=== PATIENT | female | born 1925 | race Caucasian/White ===

== ENCOUNTER 2016-10-04 11:22 | Inpatient (IN) | payer MEDICARE, BC ==
[2016-10-04] MEDS ORDERED: Sodium Chloride 0.9% 10 ML Syringe FLUSH PRN (12:04)
--- NOTE | 2016-10-04 12:59 | CT ---
Head CT Technique: Multiple axial sections through the brain were obtained. Intravenous contrast was not utilized. Comparison: No previous intracranial imaging. Findings: Ventricles along with basal cisterns and sulci over convexities are moderately prominent. Mild diminished density in noted within portions of the periventricular and subcortical white matter which is compatible with small vessel ischemic demyelination change. Several old appearing lacunar infarcts are noted within the basal ganglia. No other abnormal parenchymal densities are seen. No evidence of intracranial hemorrhage. No midline shift or mass effect is seen. Bone window settings were reviewed which shows minimal sinus disease which is felt to be chronic. No acute calvarial abnormality is seen. Atherosclerotic calcification is seen within the carotid siphon and within the vertebral vessels. Impression: 1. Senescent change as described above. No acute intracranial abnormality is identified. Diagnostic code #2
[2016-10-04] MEDS ORDERED: Sodium Chloride 0.9% 1,000 ML IV ONE (13:15)
[2016-10-04] MEDS ORDERED: Acetaminophen 325 MG Tab PO ONE (13:31)
--- NOTE | 2016-10-04 13:51 | EDM.PDOC ---
ED HPI GENERAL MEDICAL PROBLEM - General Chief Complaint: Back Pain or Injury Stated Complaint: [facility] Time Seen by Provider: 10/04/16 11:45 Source of Information: Reports: Patient, Family (daughter) History Limitations: Reports: No Limitations - History of Present Illness INITIAL COMMENTS - FREE TEXT/NARRATIVE: 89-year-old female presents via [facility] for evaluation treatment of low back pain that radiates into her buttocks, right groin and right anterior thigh. Patient reports that her pain has been going on since Sunday morning. She describes it as a spasm in her right leg. Reports the pain as a 10 out of 10. She states that she fell last night. She was on the toilet and got up when she fell backwards. She did hit her head in the occipital region when she fell. No loss of consciousness. No headaches. She is not taking anything for pain. She was instructed by her foam rubber curer not take any pain medications due to her bullous pemphigoid. She is currently complaining of pain to the right low back radiating into the buttocks, right groin and anterior right thigh. She denies any numbness or tingling. No loss of consciousness, headaches, nausea, vomiting, chest pain, abdominal pain or shortness of breath. Patient is on eloquence for A. fib. Patient is also diabetic. Right Back Pain Score (Numeric/FACES): 10 - Related Data Allergies Allergy/AdvReac Type Severity Reaction Status Date / Time allopurinol Allergy Rash Verified 10/04/16 11:35 azathioprine [From Imuran] Allergy Other Verified 10/04/16 11:35 camphor* Allergy Rash Verified 10/04/16 11:35 [From Sarna Anti-Itch] dapsone Allergy Other Verified 10/04/16 11:35 lisinopril Allergy Rash Verified 10/04/16 11:35 menthol Allergy Rash Verified 10/04/16 11:35 [From Sarna Anti-Itch] Home Meds: Home Meds Apixaban [Eliquis] 2.5 mg PO BID 10/04/16 [History] Atenolol 100 mg PO DAILY 10/04/16 [History] Atrovent 0.06% 2 spray INH BID 10/04/16 [History] Calcium Carbonate/Vitamin D3 [Caltrate 600 + D Soft Chew Tab] 1 tab PO DAILY 08/16 [History] Furosemide [Lasix] 40 mg PO DAILY 10/04/16 [History] Gabapentin [Neurontin] 100 mg PO BEDTIME 10/04/16 [History] Insulin Glarg,Human.Rec.Analog [Lantus] 15 units INJECT DAILY 10/04/16 [History] Lactobacillus Acidophilus [Acidophilus] 1 tab PO DAILY 10/04/16 [History] Latanoprost [Xalatan 0.005% Ophth Soln] 1 drop EYEBOTH BEDTIME 10/04/16 [History ] Loperamide [Imodium] 2 mg PO DAILY 10/04/16 [History] Losartan [Cozaar] 25 mg PO DAILY 10/04/16 [History] Multivitamin [Multivitamins] 1 tab PO DAILY 10/04/16 [History] Omeprazole 40 mg PO DAILY 10/04/16 [History] Prednisone [IJD: Prednisone] 15 mg PO DAILY 10/04/16 [History] Saxagliptin HCl [Onglyza] 5 mg PO DAILY 10/04/16 [History] Ubidecarenone [Co Q-10] 100 mg PO DAILY 10/04/16 [History] Past Medical History Cardiovascular History: Reports: Afib, Hypertension, Other (See Below) Other Cardiovascular History: dystolic dysfunction Endocrine/Metabolic History: Reports: Diabetes, Type II Other Endocrine/Metabolic History: insulin dependent Dermatologic History: Reports: Other (See Below) Other Dermatologic History: bullous pemphigoid Social & Family History - Tobacco Use Smoking Status *Q: Never Smoker - Caffeine Use Caffeine Use: Reports: None - Recreational Drug Use Recreational Drug Use: No ED ROS GENERAL - Review of Systems Review Of Systems: See Below Constitutional: Reports: Weakness, Decreased Appetite (has not eaten in 2 days due to the pain) Respiratory: Denies: Shortness of Breath Cardiovascular: Denies: Chest Pain GI/Abdominal: Denies: Nausea, Stool Incontinence, Vomiting : Denies: Dysuria, Incontinence Musculoskeletal: Reports: Back Pain (lower back radiating into right groin, right buttocks and right thigh) Skin: Reports: Wound (left distal forearm) Neurological: Reports: Difficulty Walking, Weakness. Denies: Headache, Syncope ED EXAM,LOWER BACK PAIN/INJURY - Physical Exam Exam: See Below Exam Limited By: No Limitations General Appearance: Alert, WD/WN, Moderate Distress Eye Exam: Bilateral Eye: PERRL Ears: Normal External Exam Nose: Normal Inspection Throat/Mouth: Normal Inspection, Normal Lips, Normal Voice, No Airway Compromise Head: Atraumatic, Normocephalic Neck: Normal Inspection, Supple, Non-Tender, Full Range of Motion Respiratory/Chest: No Respiratory Distress, Lungs Clear, Normal Breath Sounds Cardiovascular: Normal Peripheral Pulses, Irregularly Irregular GI/Abdominal: Soft, Non-Tender Back Exam: Normal Inspection, Vertebral Tenderness (t10 to the sacrum) Extremities: Normal Inspection, Limited Range of Motion (to the right hip and right knee), Other (pain with internal and external rotation of the right hip; tenderness to the right knee and right groin) Neurological: Alert, Normal Mood/Affect Psychiatric: Normal Affect, Normal Mood Skin Exam: Warm, Dry, Other (skin tear to the left distal forearm) EKG INTERPRETATION EKG Date: 10/04/16 Time: 12:40 Rhythm: A-Fib Rate (Beats/Min): 85 (75 to 120 bpm) [place]: Normal P-Wave: Present QRS: Normal ST-T: Normal QT: Normal EKG Interpretation Comments: a.fib with a rate of 75 to 120 bpm. Occasional PVC. Reviewed by myself and Dr. Crooks. Course - Vital Signs Last Recorded V/S: Last Vital Signs Temp 36.3 C 10/05/16 07:54 Pulse 84 10/05/16 08:27 Resp 12 10/05/16 07:54 BP 110/66 10/05/16 08:27 Pulse Ox 94 L 10/05/16 09:02 - Orders/Labs/Meds Orders: Active Orders 24 hr Category Date Time Status Blood Glucose Check, Bedside [] QIDACANDBED Care 10/04/16 16:31 Active Height and Weight [] 04 Care 10/04/16 16:24 Active Insert Quinones Catheter [Insert Urinary Catheter] [OM.PC] Care 10/04/16 12:50 Ordered Stat Oxygen Therapy [] PRN Care 10/04/16 16:24 Active Peripheral IV Care [] Q2HR Care 10/04/16 12:04 Active RT Aerosol Therapy [] ASDIRECTED Care 10/04/16 16:28 Active Up With Assistance [] ASDIRECTED Care 10/04/16 16:24 Active Up ad Ria [RC] ASDIRECTED Care 10/04/16 16:24 Active VTE/DVT Education [RC] DAILY Care 10/04/16 16:24 Active Vital Signs [RC] Q4H Care 10/04/16 16:24 Active Consult to Case Management [CONS] Routine Cons 10/04/16 16:28 Active Consult to Dining Car Conductor [CONS] Routine Cons 10/04/16 16:28 Active Consult to Spiritual Care [CONS] Routine Cons 10/04/16 16:28 Active OT Evaluation and Treatment [CONS] Routine Cons 10/04/16 16:28 Active PT Evaluation and Treatment [CONS] Routine Cons 10/04/16 16:28 Active Consistent Carbohydrate Diet [DIET] Diet 10/04/16 Dinner Active BASIC METABOLIC PANEL,BMP [CHEM] AM Lab 10/06/16 05:11 Ordered CBC WITH AUTO DIFF [HEME] AM Lab 10/06/16 05:11 Ordered CULTURE URINE [RM] Stat Lab 10/04/16 12:53 Results MAGNESIUM [CHEM] AM Lab 10/06/16 05:11 Ordered VITAMIN D 25-HYROXY (D2, D3) [REF] Stat Lab 10/04/16 12:35 Received Acetaminophen/HYDROcodone [[place] 325-5 MG] Med 10/04/16 16:24 Active 1 tab PO Q4H PRN Albuterol/Ipratropium [DuoNeb 3.0-0.5 MG/3 ML] Med 10/04/16 16:24 Active 3 ml NEB Q4H PRN Apixaban [Eliquis] Med 10/04/16 21:00 Active 2.5 mg PO BID Atenolol [Tenormin] Med 10/05/16 09:00 Active 100 mg PO DAILY Bisacodyl [Dulcolax] Med 10/04/16 16:24 Active 5 mg PO DAILY PRN Calcium Carbonate/Vitamin D3 [Calcium Carbonate/Vitamin Med 10/05/16 09:00 Active D 1500 MG-200 Unit] 1 tab PO DAILY Dextrose 50% in Water Med 10/04/16 16:31 Active 50 ml IVPUSH ASDIRECTED PRN Docusate Sodium [Colace] Med 10/04/16 16:24 Active 100 mg PO BID PRN Docusate Sodium/Sennosides [Senna Plus] Med 10/04/16 16:24 Active 1 tab PO BID PRN Furosemide [Lasix] Med 10/05/16 09:00 Active 40 mg PO DAILY Gabapentin [Neurontin] Med 10/04/16 21:00 Active 100 mg PO BEDTIME HYDROmorphone [Dilaudid] Med 10/04/16 16:24 Active 0.25 mg IVPUSH Q4H PRN Insulin Aspart [NovoLOG] Med 10/04/16 17:00 Active See Protocol SUBCUT QIDACANDBED Insulin Detemir [Levemir] Med 10/05/16 21:00 Active 7 unit SUBCUT BEDTIME LORazepam [Ativan] Med 10/04/16 16:24 Active 0.25 mg IV Q6H PRN Latanoprost [Xalatan 0.005% Ophth Soln] Med 10/04/16 21:00 Active 0 ml EYEBOTH BEDTIME Loperamide [Imodium] Med 10/05/16 09:00 Active 2 mg PO DAILY Losartan [Cozaar] Med 10/05/16 09:00 Active 25 mg PO DAILY Metoprolol Tartrate [Lopressor] Med 10/04/16 16:30 Active 5 mg IVPUSH Q4H PRN Multivitamins,Therapeutic [Thera] Med 10/05/16 09:00 Active 1 each PO DAILY Ondansetron [Zofran] Med 10/04/16 16:24 Active 4 mg IV Q6H PRN Pantoprazole [ProTONIX] Med 10/05/16 07:00 Active 40 mg PO DAILY@0700 Patient's Own Medication [Ptom] Med 10/05/16 09:00 Active 0 each PO DAILY Polyethylene Glycol 3350 [MiraLAX] Med 10/04/16 16:24 Active 17 gm PO DAILY PRN Promethazine [Phenergan] 12.5 mg Med 10/04/16 16:24 Active Sodium Chloride 0.9% [Normal Saline] 50 ml IV Q6H Saxagliptin [Onglyza] Med 10/05/16 09:00 Active 5 mg PO DAILY Sodium Chloride 0.9% [Saline Flush] Med 10/04/16 12:04 Active 10 ml FLUSH ASDIRECTED PRN Temazepam [Restoril] Med 10/04/16 16:24 Active 7.5 mg PO BEDTIME PRN hydrALAZINE [Apresoline] Med 10/04/16 16:30 Active 10 mg IVPUSH Q4H PRN predniSONE Med 10/05/16 09:00 Active 15 mg PO DAILY tiZANidine [Zanaflex] Med 10/04/16 16:34 Active 2 mg PO Q6H PRN Peripheral IV Insertion Adult [OM.PC] Routine Oth 10/04/16 12:04 Ordered Resuscitation Status Routine Resus Stat 10/04/16 16:24 Ordered Medication Orders Hydrocodone Bitart/Acetaminophen ([place] 325-5 Mg) 1 tab PO Q4H PRN PRN Reason: Pain (moderate 4-6) Albuterol/Ipratropium (Duoneb 3.0-0.5 Mg/3 Ml) 3 ml NEB Q4H PRN PRN Reason: Shortness Of Breath/wheezing Apixaban (Eliquis) 2.5 mg PO BID [facility] Last Admin: 10/05/16 08:27 Dose: 2.5 mg Admin: 10/04/16 20:45 Dose: 2.5 mg Atenolol (Tenormin) 100 mg PO DAILY [facility] Last Admin: 10/05/16 08:27 Dose: 100 mg Bisacodyl (Dulcolax) 5 mg PO DAILY PRN PRN Reason: Constipation Calcium Carbonate (Calcium Carbonate/Vitamin D 1500 Mg-200 Unit) 1 tab PO DAILY [facility] Last Admin: 10/05/16 08:22 Dose: 1 tab Dextrose/Water (Dextrose 50% In Water) 50 ml IVPUSH ASDIRECTED PRN PRN Reason: Hypoglycemia Diphtheria/Tetanus/Acell Pertussis (Adacel) 0.5 ml IM .ONCE ONE Stop: 10/06/16 18:26 Docusate Sodium (Colace) 100 mg PO BID PRN PRN Reason: Constipation Furosemide (Lasix) 40 mg PO DAILY [facility] Last Admin: 10/05/16 08:22 Dose: 40 mg Gabapentin (Neurontin) 100 mg PO BEDTIME [facility] Last Admin: 10/04/16 20:45 Dose: 100 mg Hydralazine HCl (Apresoline) 10 mg IVPUSH Q4H PRN PRN Reason: Hypertension Hydromorphone HCl (Dilaudid) 0.25 mg IVPUSH Q4H PRN PRN Reason: Pain (severe 7-10) Promethazine HCl 12.5 mg/ (Sodium Chloride) 50.5 mls @ 100 mls/hr IV Q6H PRN PRN Reason: Nausea/Vomiting Ceftriaxone Sodium 1 gm/ (Sodium Chloride) 100 mls @ 200 mls/hr IV Q24H [facility] Last Admin: 10/05/16 08:21 Dose: 200 mls/hr Insulin Aspart (Novolog) 0 unit SUBCUT QIDACANDBED [facility] PRN Reason: Protocol Last Admin: 10/05/16 07:00 Dose: Admin: 10/04/16 21:17 Dose: 2 units Admin: 10/04/16 18:48 Dose: Insulin Detemir (Levemir) 7 unit SUBCUT BEDTIME [facility] Insulin Detemir (Levemir) 8 unit SUBCUT DAILY [facility] Last Admin: 10/05/16 08:22 Dose: 8 units Latanoprost (Xalatan 0.005% Ophth Soln) 0 ml EYEBOTH BEDTIME [facility] Last Admin: 10/04/16 20:53 Dose: 1 drop Loperamide HCl (Imodium) 2 mg PO DAILY [facility] Last Admin: 10/05/16 08:22 Dose: 2 mg Lorazepam (Ativan) 0.25 mg IV Q6H PRN PRN Reason: Anxiety Losartan Potassium (Cozaar) 25 mg PO DAILY [facility] Last Admin: 10/05/16 08:26 Dose: 25 mg Magnesium Sulfate (Pharmacy To Dose - Magnesium Replacement) 1 dose .XX ASDIRECTED [facility] Metoprolol Tartrate (Lopressor) 5 mg IVPUSH Q4H PRN PRN Reason: Tachycardia Multivitamins (Thera) 1 each PO DAILY [facility] Last Admin: 10/05/16 08:22 Dose: 1 each Ondansetron HCl (Zofran) 4 mg IV Q6H PRN PRN Reason: Nausea/Vomiting Oxycodone HCl (Oxycodone) 5 mg PO Q12HR [facility] Last Admin: 10/05/16 08:27 Dose: 5 mg Admin: 10/04/16 20:45 Dose: 5 mg Pantoprazole Sodium (Protonix) 40 mg PO DAILY@0700 [facility] Last Admin: 10/05/16 06:04 Dose: 40 mg Ubidecarenone 100 Mg 0 each PO DAILY [facility] Last Admin: 10/05/16 08:27 Dose: Polyethylene Glycol (Miralax) 17 gm PO DAILY PRN PRN Reason: Constipation Potassium Chloride (Pharmacy To Dose - Potassium Replacement) 1 dose .XX ASDIRECTED [facility] Potassium Chloride (Klor-Con M20) 40 meq PO Q4H [facility] Stop: 10/05/16 16:16 Last Admin: 10/05/16 08:21 Dose: 40 meq Prednisone (Prednisone) 15 mg PO DAILY [facility] Last Admin: 10/05/16 08:22 Dose: 15 mg Saccharomyces Boulardii (Florastor) 250 mg PO DAILY [facility] Last Admin: 10/05/16 08:21 Dose: 250 mg Saxagliptin Hydrochloride (Onglyza) 5 mg PO DAILY [facility] Senna/Docusate Sodium (Senna Plus) 1 tab PO BID PRN PRN Reason: Constipation Sodium Chloride (Saline Flush) 10 ml FLUSH ASDIRECTED PRN PRN Reason: Keep Vein Open Last Admin: 10/04/16 12:41 Dose: 10 ml Temazepam (Restoril) 7.5 mg PO BEDTIME PRN PRN Reason: Sleep Tiotropium [place] (Spiriva Handihaler) 18 mcg INH DAILY [facility] Last Admin: 10/05/16 08:58 Dose: 1 puff Admin: 10/04/16 20:59 Dose: 1 puff Tizanidine HCl (Zanaflex) 2 mg PO Q6H PRN PRN Reason: Muscle Spasm Labs: Laboratory Tests 10/04/16 10/04/16 10/04/16 Range/Units 12:32 12:35 12:35 WBC 13.92 H (3.98-10.04) K/mm3 RBC 5.11 (3.98-5.22) M/mm3 Hgb 15.4 (11.2-15.7) gm/L Hct 47.4 H (34.1-44.9) % MCV 92.8 (79.4-94.8) fl MCH 30.1 (25.6-32.2) pg MCHC 32.5 (32.2-35.5) g/dl RDW Std Deviation 50.0 H (36.4-46.3) fL Plt Count 265 (182-369) K/mm3 MPV 10.3 (9.4-12.3) fl Neut % (Auto) 85.3 H (34.0-71.1) % Lymph % (Auto) 5.1 L (19.3-51.7) % [place] % (Auto) 6.9 (4.7-12.5) % Eos % (Auto) 0.1 L (0.7-5.8) Baso % (Auto) 0.3 (0.1-1.2) % Neut # (Auto) 11.88 H (1.56-6.13) K/mm3 Lymph # (Auto) 0.71 L (1.18-3.74) K/mm3 [place] # (Auto) 0.96 H (0.24-0.36) K/mm3 Eos # (Auto) 0.01 L (0.04-0.36) K/mm3 Baso # (Auto) 0.04 (0.01-0.08) K/mm3 Manual Slide Review Abnormal smear PT 10.8 (8.0-13.0) SECONDS INR 0.99 Sodium (136-145) mEq/L Potassium (3.5-5.1) mEq/L Chloride (98-107) mEq/L Carbon Dioxide (21-32) mEq/L Anion Gap (5-15) BUN (7-18) mg/dL Creatinine (0.55-1.02) mg/dL Est Cr Clr Drug Dosing mL/min Estimated GFR (MDRD) (>60) mL/min BUN/Creatinine Ratio (14-18) Glucose (83-115) mg/dL POC Glucose 230 H (83-110) mg/dL Hemoglobin A1c (4.50-6.20) % Calcium (8.5-10.1) mg/dL Magnesium (1.8-2.4) mg/dl Total Bilirubin (0.2-1.0) mg/dL AST (15-37) U/L ALT (14-59) U/L Alkaline Phosphatase (46-116) U/L Troponin I (0.00-0.056) ng/mL C-Reactive Protein (<1.0) mg/dL B-Natriuretic Peptide (0-100) pg/mL Total Protein (6.4-8.2) g/dl Albumin (3.4-5.0) g/dl Globulin gm/dL Albumin/Globulin Ratio (1-2) Free T4 (0.76-1.46) ng/dL TSH 3rd Generation (0.358-3.74) uIU/mL Urine Color (Yellow) Urine Appearance (Clear) Urine pH (5.0-8.0) Ur Specific [place] (1.005-1.030) Urine Protein (Negative) Urine Glucose (UA) (Negative) Urine Ketones (Negative) Urine Occult Blood (Negative) Urine Nitrite (Negative) Urine Bilirubin (Negative) Urine Urobilinogen (0.2-1.0) Ur Leukocyte Esterase (Negative) Urine RBC (0-5) /hpf Urine WBC (0-5) /hpf Urine WBC Clumps (NOT SEEN) /hpf Ur Epithelial Cells (0-5) /hpf Urine Bacteria (FEW) /hpf Urine Mucus (FEW) /hpf 10/04/16 10/04/16 10/04/16 Range/Units 12:35 12:35 12:35 WBC (3.98-10.04) K/mm3 RBC (3.98-5.22) M/mm3 Hgb (11.2-15.7) gm/L Hct (34.1-44.9) % MCV (79.4-94.8) fl MCH (25.6-32.2) pg MCHC (32.2-35.5) g/dl RDW Std Deviation (36.4-46.3) fL Plt Count (182-369) K/mm3 MPV (9.4-12.3) fl Neut % (Auto) (34.0-71.1) % Lymph % (Auto) (19.3-51.7) % [place] % (Auto) (4.7-12.5) % Eos % (Auto) (0.7-5.8) Baso % (Auto) (0.1-1.2) % Neut # (Auto) (1.56-6.13) K/mm3 Lymph # (Auto) (1.18-3.74) K/mm3 [place] # (Auto) (0.24-0.36) K/mm3 Eos # (Auto) (0.04-0.36) K/mm3 Baso # (Auto) (0.01-0.08) K/mm3 Manual Slide Review PT (8.0-13.0) SECONDS INR Sodium 137 (136-145) mEq/L Potassium 3.2 L (3.5-5.1) mEq/L Chloride 95 L (98-107) mEq/L Carbon Dioxide 33 H (21-32) mEq/L Anion Gap 12.2 (5-15) BUN 19 H (7-18) mg/dL Creatinine 1.4 H (0.55-1.02) mg/dL Est Cr Clr Drug Dosing 22.53 mL/min Estimated GFR (MDRD) 35 (>60) mL/min BUN/Creatinine Ratio 13.6 L (14-18) Glucose 238 H (83-115) mg/dL POC Glucose (83-110) mg/dL Hemoglobin A1c (4.50-6.20) % Calcium 9.1 (8.5-10.1) mg/dL Magnesium 2.0 (1.8-2.4) mg/dl Total Bilirubin 0.9 (0.2-1.0) mg/dL AST 19 (15-37) U/L ALT 34 (14-59) U/L Alkaline Phosphatase 32 L (46-116) U/L Troponin I (0.00-0.056) ng/mL C-Reactive Protein (<1.0) mg/dL B-Natriuretic Peptide 781 H (0-100) pg/mL Total Protein 6.8 (6.4-8.2) g/dl Albumin 3.5 (3.4-5.0) g/dl Globulin 3.3 gm/dL Albumin/Globulin Ratio 1.1 (1-2) Free T4 (0.76-1.46) ng/dL TSH 3rd Generation (0.358-3.74) uIU/mL Urine Color (Yellow) Urine Appearance (Clear) Urine pH (5.0-8.0) Ur Specific [place] (1.005-1.030) Urine Protein (Negative) Urine Glucose (UA) (Negative) Urine Ketones (Negative) Urine Occult Blood (Negative) Urine Nitrite (Negative) Urine Bilirubin (Negative) Urine Urobilinogen (0.2-1.0) Ur Leukocyte Esterase (Negative) Urine RBC (0-5) /hpf Urine WBC (0-5) /hpf Urine WBC Clumps (NOT SEEN) /hpf Ur Epithelial Cells (0-5) /hpf Urine Bacteria (FEW) /hpf Urine Mucus (FEW) /hpf 07/05/17 07/05/17 07/05/17 Range/Units 12:35 12:35 12:35 WBC (3.98-10.04) K/mm3 RBC (3.98-5.22) M/mm3 Hgb (11.2-15.7) gm/L Hct (34.1-44.9) % MCV (79.4-94.8) fl MCH (25.6-32.2) pg MCHC (32.2-35.5) g/dl RDW Std Deviation (36.4-46.3) fL Plt Count (182-369) K/mm3 MPV (9.4-12.3) fl Neut % (Auto) (34.0-71.1) % Lymph % (Auto) (19.3-51.7) % [place] % (Auto) (4.7-12.5) % Eos % (Auto) (0.7-5.8) Baso % (Auto) (0.1-1.2) % Neut # (Auto) (1.56-6.13) K/mm3 Lymph # (Auto) (1.18-3.74) K/mm3 [place] # (Auto) (0.24-0.36) K/mm3 Eos # (Auto) (0.04-0.36) K/mm3 Baso # (Auto) (0.01-0.08) K/mm3 Manual Slide Review PT (8.0-13.0) SECONDS INR Sodium (136-145) mEq/L Potassium (3.5-5.1) mEq/L Chloride (98-107) mEq/L Carbon Dioxide (21-32) mEq/L Anion Gap (5-15) BUN (7-18) mg/dL Creatinine (0.55-1.02) mg/dL Est Cr Clr Drug Dosing mL/min Estimated GFR (MDRD) (>60) mL/min BUN/Creatinine Ratio (14-18) Glucose (83-115) mg/dL POC Glucose (83-110) mg/dL Hemoglobin A1c 8.90 H (4.50-6.20) % Calcium (8.5-10.1) mg/dL Magnesium (1.8-2.4) mg/dl Total Bilirubin (0.2-1.0) mg/dL AST (15-37) U/L ALT (14-59) U/L Alkaline Phosphatase (46-116) U/L Troponin I < 0.017 (0.00-0.056) ng/mL C-Reactive Protein < 0.2 (<1.0) mg/dL B-Natriuretic Peptide (0-100) pg/mL Total Protein (6.4-8.2) g/dl Albumin (3.4-5.0) g/dl Globulin gm/dL Albumin/Globulin Ratio (1-2) Free T4 1.39 (0.76-1.46) ng/dL TSH 3rd Generation 2.412 (0.358-3.74) uIU/mL Urine Color (Yellow) Urine Appearance (Clear) Urine pH (5.0-8.0) Ur Specific [place] (1.005-1.030) Urine Protein (Negative) Urine Glucose (UA) (Negative) Urine Ketones (Negative) Urine Occult Blood (Negative) Urine Nitrite (Negative) Urine Bilirubin (Negative) Urine Urobilinogen (0.2-1.0) Ur Leukocyte Esterase (Negative) Urine RBC (0-5) /hpf Urine WBC (0-5) /hpf Urine WBC Clumps (NOT SEEN) /hpf Ur Epithelial Cells (0-5) /hpf Urine Bacteria (FEW) /hpf Urine Mucus (FEW) /hpf 10/04/16 Range/Units 12:53 WBC (3.98-10.04) K/mm3 RBC (3.98-5.22) M/mm3 Hgb (11.2-15.7) gm/L Hct (34.1-44.9) % MCV (79.4-94.8) fl MCH (25.6-32.2) pg MCHC (32.2-35.5) g/dl RDW Std Deviation (36.4-46.3) fL Plt Count (182-369) K/mm3 MPV (9.4-12.3) fl Neut % (Auto) (34.0-71.1) % Lymph % (Auto) (19.3-51.7) % [place] % (Auto) (4.7-12.5) % Eos % (Auto) (0.7-5.8) Baso % (Auto) (0.1-1.2) % Neut # (Auto) (1.56-6.13) K/mm3 Lymph # (Auto) (1.18-3.74) K/mm3 [place] # (Auto) (0.24-0.36) K/mm3 Eos # (Auto) (0.04-0.36) K/mm3 Baso # (Auto) (0.01-0.08) K/mm3 Manual Slide Review PT (8.0-13.0) SECONDS INR Sodium (136-145) mEq/L Potassium (3.5-5.1) mEq/L Chloride (98-107) mEq/L Carbon Dioxide (21-32) mEq/L Anion Gap (5-15) BUN (7-18) mg/dL Creatinine (0.55-1.02) mg/dL Est Cr Clr Drug Dosing mL/min Estimated GFR (MDRD) (>60) mL/min BUN/Creatinine Ratio (14-18) Glucose (83-115) mg/dL POC Glucose (83-110) mg/dL Hemoglobin A1c (4.50-6.20) % Calcium (8.5-10.1) mg/dL Magnesium (1.8-2.4) mg/dl Total Bilirubin (0.2-1.0) mg/dL AST (15-37) U/L ALT (14-59) U/L Alkaline Phosphatase (46-116) U/L Troponin I (0.00-0.056) ng/mL C-Reactive Protein (<1.0) mg/dL B-Natriuretic Peptide (0-100) pg/mL Total Protein (6.4-8.2) g/dl Albumin (3.4-5.0) g/dl Globulin gm/dL Albumin/Globulin Ratio (1-2) Free T4 (0.76-1.46) ng/dL TSH 3rd Generation (0.358-3.74) uIU/mL Urine Color Dark yellow (Yellow) Urine Appearance Slt cloudy H (Clear) Urine pH 6.5 (5.0-8.0) Ur Specific [place] 1.020 (1.005-1.030) Urine Protein 1+ H (Negative) Urine Glucose (UA) Negative (Negative) Urine Ketones Negative (Negative) Urine Occult Blood 2+ H (Negative) Urine Nitrite Positive H (Negative) Urine Bilirubin Negative (Negative) Urine Urobilinogen 0.2 (0.2-1.0) Ur Leukocyte Esterase Trace H (Negative) Urine RBC 0-5 (0-5) /hpf Urine WBC 40-50 H (0-5) /hpf Urine WBC Clumps Few (NOT SEEN) /hpf Ur Epithelial Cells 5-10 H (0-5) /hpf Urine Bacteria Many H (FEW) /hpf Urine Mucus Not seen (FEW) /hpf Meds: Medications Generic Name Dose Route Start Last Admin Trade Name Freq PRN Reason Stop Dose Admin Hydrocodone Bitart/Acetaminophen 1 tab 10/04/16 16:24 [place] 325-5 Mg PO Q4H PRN Pain (moderate 4-6) Albuterol/Ipratropium 3 ml 10/04/16 16:24 Duoneb 3.0-0.5 Mg/3 Ml NEB Q4H PRN Shortness Of Breath/wheezing Apixaban 2.5 mg 10/04/16 21:00 10/05/16 08:27 Eliquis PO 2.5 mg BID GURVINDER Administration Atenolol 100 mg 10/05/16 09:00 10/05/16 08:27 Tenormin PO 100 mg DAILY GURVINDER Administration Bisacodyl 5 mg 10/04/16 16:24 Dulcolax PO DAILY PRN Constipation Calcium Carbonate 1 tab 10/05/16 09:00 10/05/16 08:22 Calcium Carbonate/Vitamin D 1500 Mg-200 Unit PO 1 tab DAILY GURVINDER Administration Dextrose/Water 50 ml 10/04/16 16:31 Dextrose 50% In Water IVPUSH ASDIRECTED PRN Hypoglycemia Diphtheria/Tetanus/Acell Pertussis 0.5 ml 10/06/16 18:25 Adacel IM 10/06/16 18:26 .ONCE ONE Docusate Sodium 100 mg 10/04/16 16:24 Colace PO BID PRN Constipation Furosemide 40 mg 10/05/16 09:00 10/05/16 08:22 Lasix PO 40 mg DAILY GURVINDER Administration Gabapentin 100 mg 10/04/16 21:00 10/04/16 20:45 Neurontin PO 100 mg BEDTIME GURVINDER Administration Hydralazine HCl 10 mg 10/04/16 16:30 Apresoline IVPUSH Q4H PRN Hypertension Hydromorphone HCl 0.25 mg 10/04/16 16:24 Dilaudid IVPUSH Q4H PRN Pain (severe 7-10) Promethazine HCl 12.5 mg/ 50.5 mls @ 100 mls/hr 10/04/16 16:24 Sodium Chloride IV Q6H PRN Nausea/Vomiting Ceftriaxone Sodium 1 gm/ 100 mls @ 200 mls/hr 10/05/16 09:00 10/05/16 08:21 Sodium Chloride IV 200 mls/hr Q24H GURVINDER Administration Insulin Aspart 0 unit 10/04/16 17:00 10/05/16 07:00 Novolog SUBCUT Not Given QIDACANDBED [facility] Protocol Insulin Detemir 7 unit 10/05/16 21:00 Levemir SUBCUT BEDTIME GURVINDER Insulin Detemir 8 unit 10/05/16 09:00 10/05/16 08:22 Levemir SUBCUT 8 units DAILY GURVINDER Administration Latanoprost 0 ml 10/04/16 21:00 10/04/16 20:53 Xalatan 0.005% Ophth Soln EYEBOTH 1 drop BEDTIME GURVINDER Administration Loperamide HCl 2 mg 10/05/16 09:00 10/05/16 08:22 Imodium PO 2 mg DAILY GURVINDER Administration Lorazepam 0.25 mg 10/04/16 16:24 Ativan IV Q6H PRN Anxiety Losartan Potassium 25 mg 10/05/16 09:00 10/05/16 08:26 Cozaar PO 25 mg DAILY GURVINDER Administration Magnesium Sulfate 1 dose 10/04/16 20:00 Pharmacy To Dose - Magnesium Replacement .XX ASDIRECTED [facility] Metoprolol Tartrate 5 mg 10/04/16 16:30 Lopressor IVPUSH Q4H PRN Tachycardia Multivitamins 1 each 10/05/16 09:00 10/05/16 08:22 Thera PO 1 each DAILY GURVINDER Administration Ondansetron HCl 4 mg 10/04/16 16:24 Zofran IV Q6H PRN Nausea/Vomiting Oxycodone HCl 5 mg 10/04/16 21:00 10/05/16 08:27 Oxycodone PO 5 mg Q12HR GURVINDER Administration Pantoprazole Sodium 40 mg 10/05/16 07:00 10/05/16 06:04 Protonix PO 40 mg DAILY@0700 GURVINDER Administration Ubidecarenone 100 Mg 0 each 10/05/16 09:00 10/05/16 08:27 PO Not Given DAILY GURVINDER Polyethylene Glycol 17 gm 10/04/16 16:24 Miralax PO DAILY PRN Constipation Potassium Chloride 1 dose 10/04/16 20:00 Pharmacy To Dose - Potassium Replacement .XX ASDIRECTED GURVINDER Potassium Chloride 40 meq 10/05/16 08:15 10/05/16 08:21 Klor-Con M20 PO 10/05/16 16:16 40 meq Q4H G[facility]VINDER Administration Prednisone 15 mg 10/05/16 09:00 10/05/16 08:22 Prednisone PO 15 mg DAILY [facility] Administration Saccharomyces Boulardii 250 mg 10/05/16 09:00 10/05/16 08:21 Florastor PO 250 mg DAILY G[facility]ER Administration Saxagliptin Hydrochloride 5 mg 10/05/16 09:00 Onglyza PO DAILY G[facility]VINDER Senna/Docusate Sodium 1 tab 10/04/16 16:24 Senna Plus PO BID PRN Constipation Sodium Chloride 10 ml 10/04/16 12:04 10/04/16 12:41 Saline Flush FLUSH 10 ml ASDIRECTED PRN Administration Keep Vein Open Temazepam 7.5 mg 10/04/16 16:24 Restoril PO BEDTIME PRN Sleep Tiotropium [place] 18 mcg 10/04/16 19:45 10/05/16 08:58 Spiriva Handihaler INH 1 puff DAILY [facility] Administration Tizanidine HCl 2 mg 10/04/16 16:34 Zanaflex PO Q6H PRN Muscle Spasm Discontinued Medications Generic Name Dose Route Start Last Admin Trade Name Freq PRN Reason Stop Dose Admin Acetaminophen 650 mg 10/04/16 13:31 10/04/16 14:32 Tylenol PO 10/04/16 13:32 650 mg NOW ONE Administration Diazepam 2 mg 10/04/16 12:15 10/04/16 12:41 Valium IVPUSH 10/04/16 12:16 2 mg ONETIME ONE Administration Diazepam 2 mg 10/04/16 13:31 10/04/16 14:28 Valium IVPUSH 10/04/16 13:32 2 mg ONETIME ONE Administration Hydromorphone HCl 0.25 mg 10/04/16 15:18 10/04/16 15:39 Dilaudid IVPUSH 10/04/16 15:19 0.25 mg ONETIME ONE Administration Sodium Chloride 1,000 mls @ 100 mls/hr 10/04/16 13:15 10/04/16 14:25 Normal Saline IV 10/04/16 23:14 100 mls/hr ONETIME ONE Administration Ceftriaxone Sodium 1 gm/ 100 mls @ 200 mls/hr 10/04/16 15:34 10/04/16 15:59 Sodium Chloride IV 10/04/16 16:03 200 mls/hr ONETIME ONE Administration Magnesium Oxide 400 mg 10/05/16 08:30 10/05/16 08:22 Magnesium Oxide PO 10/05/16 08:31 400 mg ONETIME ONE Administration Non-Formulary Medication 1 tab 10/05/16 09:00 Lactobacillus Acidophilus [Acidophilus] PO DAILY GURVINDER Oxycodone HCl 10 mg 10/04/16 21:00 Oxycontin PO Q12HR G[facility]INDER Oxycodone HCl 5 mg 10/04/16 21:00 Oxycontin PO Q12HR [facility]UR[facility]INDER Potassium Chloride 20 meq 10/04/16 15:31 10/04/16 15:41 Klor-Con M20 PO 10/04/16 15:32 20 meq ONETIME ONE Administration - Radiology Interpretation Free Text/Narrative:: CT of the head without contrast impression per Dr. Ryan: 1. Senescent change. No acute intracranial abnormality is identified. chest [address] Ryan: Impression: 1. Multiple findings which are stable. Nothing acute is appreciated on frontal chest x-ray. right knee [address] Ryan: Impression: 1. Degenerative change as described above. Nothing acute is identified on right knee exam. right hip and pelvis impression per Dr. Ryan: Impression: 1. Degenerative change. 2. Nothing acute is identified on AP pelvis or on 2 view right hip study. lumbar spine impression per Dr. Ryan: Impression: 1. Diffuse degenerative change as well as scoliosis and vascular calcification. 2. Spondylolisthesis at L4-L5 believed to be due to degenerative apophyseal change, but please correlate with the patient's symptoms and if patient has had sufficient trauma, CT could be considered to confirm this impression of degenerative change. thoracic spine impression per Dr. Ryan: Impression: 1. Mild anterior wedging within the mid thoracic spine most likely old. 2. Degenerative change and mild scoliosis. Ct of the lumbar spine impression per Dr. Ryan: Impression: 1. Degenerative change as described above. No acute fracture or acute subluxation is seen. CT of the right hip impression per Dr. Ryan: N actute fracture is appreciated on CT study ofthe right hip. Degenerative chanes. - Re-Assessments/Exams Free Text/Narrative Re-Assessment/Exam: 10/04/16 12:30 Patient and family are very concerned about the pemphigoid. They do not want pain medication and would like to try something for muscle relaxation instead. 10/04/16 13:30 Labs returned wbc is 13.92 9she is on prednison 15mg PO daily), hgb is 15.4, plts are 265 sodium is 137, potassium is 3.2 and chloride is 95. anion gap is 12.2 creatinine is 1.4 glucose is 238 trop is <0.017 BNP is 781 mag is 2.0 Discussed ekg, labs and imagining with the patient. Will obtain CT of the right hip and lumbar spine to further evaluate pain. Patent had good relief with the 2mg IV valvium but only lasted about 45 minutes. Will give tylenol PO and an additional 2mg IV valvium for relief. 10/04/16 15:[address] results with the patient and her family. Continues to have severe pain. I would like to give Dilaudid for pain. This medication is not listed as one that may worsen pemphigoid. They agree. Will give 0.25mg IV dilaudid. 10/04/16 16:[address] Ramirez, hospitalist, agrees to admission. Will admit for pain control, UTI treatment, hypokalemia and back pain. Patient reports pain has improved with the IV dilaudid. Patient given IV rocephin for the UTI. Rocephin was not listed as a medication that may exacerbate pemphigoid. Departure - Departure Time of Disposition: 16:30 Disposition: Admitted As Inpatient 67 Condition: Poor Clinical Impression: Acute exacerbation of chronic low back pain, Hypokalemia UTI (urinary tract infection) Qualifiers: Urinary tract infection type: acute cystitis Hematuria presence: without hematuria Qualified Code(s): N30.00 - Acute cystitis without hematuria Fall at home Qualifiers: Encounter type: initial encounter Qualified Code(s): W19.XXXA - Unspecified fall, initial encounter DJD (degenerative joint disease) Qualifiers: Osteoarthritis location: unspecified site - Discharge Information - My Orders Last 24 Hours: My Active Orders 10/04/16 12:04 Peripheral IV Care [RC] Q2HR Sodium Chloride 0.9% [Saline Flush] 10 ml FLUSH ASDIRECTED PRN Peripheral IV Insertion Adult [OM.PC] Routine 10/04/16 12:50 Insert Quinones Catheter [Insert Urinary Catheter] [OM.PC] Stat 10/04/16 12:53 CULTURE URINE [RM] Stat - Assessment/Plan Last 24 Hours: My Active Orders 10/04/16 12:04 Peripheral IV Care [RC] Q2HR Sodium Chloride 0.9% [Saline Flush] 10 ml FLUSH ASDIRECTED PRN Peripheral IV Insertion Adult [OM.PC] Routine 10/04/16 12:50 Insert Quinones Catheter [Insert Urinary Catheter] [OM.PC] Stat 10/04/16 12:53 CULTURE URINE [RM] Stat
[2016-10-04] MEDS ORDERED: HYDROmorphone 0.5 MG/0.5 ML Syringe IVPUSH ONE (15:18)
[2016-10-04] MEDS ORDERED: Potassium Chloride 20 MEQ Tab.ER PO ONE (15:31)
--- NOTE | 2016-10-04 15:32 | CT ---
CT lumbar spine Technique: Multiple axial sections were obtained from the mid T11 level through the L5-S1 disc. Reconstructed sagittal and coronal images were reviewed. Findings: Vacuum phenomena is noted within T11-T12, L2-3 and L4-L5 discs. Severe disc space narrowing is noted at L3-L4. Moderate disc space narrowing at L4-L5 is seen. Severe disc space narrowing with vacuum phenomena is seen at L5-S1. Spondylolisthesis is noted at L4-L5 measuring on CT exam approximately 6 mm. Severe degenerative apophyseal change is noted at this level. Spondylolisthesis is felt to be of this etiology rather than fracture. Diffuse circumferential disc bulging seen throughout the lumbar spine. Mild central canal stenosis is seen at L 2-3. Mild central canal stenosis is noted at L3-L4. Mild to moderate central canal stenosis noted at L4-L5. Impression: 1. Degenerative change as described above. No acute fracture or acute subluxation is seen. Diagnostic code #3
[2016-10-04] MEDS ORDERED: cefTRIAXone 1 GM in Sodium Chloride 0.9% 100 ML IV ONE (15:34)
--- NOTE | 2016-10-04 16:15 | PCM.HP ---
H&P History of Present Illness - General Date of Service: 10/04/16 Admit Problem/Dx: Acute on Chronic Pain Source of Information: Patient, Family, Old Records, Provider, RN Notes Reviewed History Limitations: Reports: Physical Impairment - History of Present Illness Initial Comments - Free Text/Narative: This is an 89-year-old elderly white female with past medical history of chronic atrial fibrillation on eliquis, hypertension, congestive heart failure with preserved EF (unknown last 2D echo), type 2 diabetes, and history of bullous pemphigoid on chronic oral steroid who presents to the emergency department for evaluation of low back pain that has been going on since Sunday morning. Her pain is spastic in nature that radiates to her buttocks, right groin and right anterior thigh. She rates her pain as 10 out of 10 on pain scale. Last night she fell backwards while she was on her way to the bathroom. She denies any prodromal symptoms. She did hit her head on her way down but denies losing consciousness or any lingering headaches. Patient denies any numbness or tingling. No loss of bowel or bladder control. No shortness of breath, chest pain, nausea vomiting or abdominal complaints. Her initial workup in emergency department reveals a CBC remarkable for WBC of 13.2, hematocrit 47.4, and neutrophil counts of 11.88. Her chemistry is remarkable for potassium of 2.2, chloride of 95, carbon dioxide of 33, BUN of 19 , creatinine 1.4, glucose of 238, alkaline phosphatase 32 and BNP of 781. Her UA is suggestive for UTI. All imaging studies to include Head CT scan reveal no acute abnormal findings. Patient is being admitted for UTI and acute back pain status post fall. She is DNR/DNI. Right Back Pain Score (Numeric/FACES): 10 - Related Data Allergies/Adverse Reactions: Allergies Allergy/AdvReac Type Severity Reaction Status Date / Time allopurinol Allergy Rash Verified 10/04/16 11:35 azathioprine [From Imuran] Allergy Other Verified 10/04/16 11:35 camphor* Allergy Rash Verified 10/04/16 11:35 [From Sarna Anti-Itch] dapsone Allergy Other Verified 10/04/16 11:35 lisinopril Allergy Rash Verified 10/04/16 11:35 menthol Allergy Rash Verified 10/04/16 11:35 [From Sarna Anti-Itch] Home Medications: Home Meds Apixaban [Eliquis] 2.5 mg PO BID 10/04/16 [History] Atenolol 100 mg PO DAILY 10/04/16 [History] Atrovent 0.06% 2 spray INH BID 10/04/16 [History] Calcium Carbonate/Vitamin D3 [Caltrate 600 + D Soft Chew Tab] 1 tab PO DAILY 08/16 [History] Furosemide [Lasix] 40 mg PO DAILY 10/04/16 [History] Gabapentin [Neurontin] 100 mg PO BEDTIME 10/04/16 [History] Insulin Glarg,Human.Rec.Analog [Lantus] 15 units INJECT DAILY 10/04/16 [History] Lactobacillus Acidophilus [Acidophilus] 1 tab PO DAILY 10/04/16 [History] Latanoprost [Xalatan 0.005% Ophth Soln] 1 drop EYEBOTH BEDTIME 10/04/16 [History ] Loperamide [Imodium] 2 mg PO DAILY 10/04/16 [History] Losartan [Cozaar] 25 mg PO DAILY 10/04/16 [History] Multivitamin [Multivitamins] 1 tab PO DAILY 10/04/16 [History] Omeprazole 40 mg PO DAILY 10/04/16 [History] Prednisone [IJD: Prednisone] 15 mg PO DAILY 10/04/16 [History] Saxagliptin HCl [Onglyza] 5 mg PO DAILY 10/04/16 [History] Ubidecarenone [Co Q-10] 100 mg PO DAILY 10/04/16 [History] Past Medical History Cardiovascular History: Reports: Afib, Hypertension, Other (See Below) Other Cardiovascular History: dystolic dysfunction Endocrine/Metabolic History: Reports: Diabetes, Type II Other Endocrine/Metabolic History: insulin dependent Dermatologic History: Reports: Other (See Below) Other Dermatologic History: bullous pemphigoid Social & Family History - Tobacco Use Smoking Status *Q: Never Smoker - Caffeine Use Caffeine Use: Reports: None - Recreational Drug Use Recreational Drug Use: No H&P Review of Systems - Review of Systems: Review Of Systems: See Below General: Denies: Fever, Chills, Malaise, Weakness, Fatigue HEENT: Reports: No Symptoms Pulmonary: Denies: Shortness of Breath Cardiovascular: Denies: No Symptoms Gastrointestinal: Denies: Abdominal Pain, Nausea, Vomiting Genitourinary: Reports: Frequency, Incontinence Musculoskeletal: Reports: Back Pain, Joint Pain, Muscle Pain, Other (Groin and Anterior Thigh) Skin: Denies: Cyanosis, Jaundice, Rash, Erythema, Wound Psychiatric: Denies: Depression, Anxiety, Agitation, Hallucinations Neurological: Reports: Difficulty Walking, Weakness, Gait Disturbance. Denies: Confusion Hematologic/Lymphatic: Reports: No Symptoms Immunologic: Reports: No Symptoms Exam - Exam Exam: See Below - Vital Signs Vital Signs: Last Vital Signs Temp 37.1 C 10/04/16 11:29 Pulse 84 10/04/16 16:02 Resp 18 10/04/16 16:02 BP 111/58 L 10/04/16 16:02 Pulse Ox 98 10/04/16 16:02 Weight: 81.647 kg - Exam Quality Assessment: No: Supplemental Oxygen General: Alert, Oriented, Cooperative, Mild Distress HEENT: Conjunctiva Clear, EACs Clear, EOMI, Hearing Intact, Mucosa Moist & [place] , Nares Patent, Normal Nasal Septum, Posterior Pharynx Clear, Pupils Equal, Pupils Reactive, TMs Clear Neck: Supple, Trachea Midline, +2 Carotid Pulse wo Bruit Lungs: Normal Respiratory Effort, Decreased Breath Sounds Cardiovascular: Irregular Rhythm Abdomen: Normal Bowel Sounds, Soft. No: Pelvis Stable, Tenderness (Female) Exam: Deferred Rectal (Female) Exam: Deferred Back Exam: Normal Inspection, Decreased Range of Motion, Muscle Spasm, Paraspinal Tenderness, Vertebral Tenderness Extremities: Normal Inspection, Normal Pulses Peripheral Pulses: 2+: Posterior Tibial (L), Posterior Tibial (R), Dorsalis Pedis (L), Dorsalis Pedis (R) Skin: Warm Neuro Extensive - Mental Status: Oriented x3, Normal Cognition, Memory Intact Neuro Extensive - Motor, Sensory, Reflexes: CN II-XII Intact (limited due to pain with movement), Abnormal Gait Psychiatric: Alert, Normal Affect, Normal Mood - Patient Data Lab Results Last 24 hrs: Laboratory Results - last 24 hr 10/04/16 10/04/16 10/04/16 Range/Units 12:32 12:35 12:35 WBC 13.92 H (3.98-10.04) K/mm3 RBC 5.11 (3.98-5.22) M/mm3 Hgb 15.4 (11.2-15.7) gm/L Hct 47.4 H (34.1-44.9) % MCV 92.8 (79.4-94.8) fl MCH 30.1 (25.6-32.2) pg MCHC 32.5 (32.2-35.5) g/dl RDW Std Deviation 50.0 H (36.4-46.3) fL Plt Count 265 (182-369) K/mm3 MPV 10.3 (9.4-12.3) fl Neut % (Auto) 85.3 H (34.0-71.1) % Lymph % (Auto) 5.1 L (19.3-51.7) % [place] % (Auto) 6.9 (4.7-12.5) % Eos % (Auto) 0.1 L (0.7-5.8) Baso % (Auto) 0.3 (0.1-1.2) % Neut # (Auto) 11.88 H (1.56-6.13) K/mm3 Lymph # (Auto) 0.71 L (1.18-3.74) K/mm3 [place] # (Auto) 0.96 H (0.24-0.36) K/mm3 Eos # (Auto) 0.01 L (0.04-0.36) K/mm3 Baso # (Auto) 0.04 (0.01-0.08) K/mm3 Manual Slide Review Abnormal smear PT 10.8 (8.0-13.0) SECONDS INR 0.99 Sodium (136-145) mEq/L Potassium (3.5-5.1) mEq/L Chloride (98-107) mEq/L Carbon Dioxide (21-32) mEq/L Anion Gap (5-15) BUN (7-18) mg/dL Creatinine (0.55-1.02) mg/dL Est Cr Clr Drug Dosing mL/min Estimated GFR (MDRD) (>60) mL/min BUN/Creatinine Ratio (14-18) Glucose (83-115) mg/dL POC Glucose 230 H (83-110) mg/dL Calcium (8.5-10.1) mg/dL Magnesium (1.8-2.4) mg/dl Total Bilirubin (0.2-1.0) mg/dL AST (15-37) U/L ALT (14-59) U/L Alkaline Phosphatase (46-116) U/L Troponin I (0.00-0.056) ng/mL B-Natriuretic Peptide (0-100) pg/mL Total Protein (6.4-8.2) g/dl Albumin (3.4-5.0) g/dl Globulin gm/dL Albumin/Globulin Ratio (1-2) Urine Color (Yellow) Urine Appearance (Clear) Urine pH (5.0-8.0) Ur Specific [place] (1.005-1.030) Urine Protein (Negative) Urine Glucose (UA) (Negative) Urine Ketones (Negative) Urine Occult Blood (Negative) Urine Nitrite (Negative) Urine Bilirubin (Negative) Urine Urobilinogen (0.2-1.0) Ur Leukocyte Esterase (Negative) Urine RBC (0-5) /hpf Urine WBC (0-5) /hpf Urine WBC Clumps (NOT SEEN) /hpf Ur Epithelial Cells (0-5) /hpf Urine Bacteria (FEW) /hpf Urine Mucus (FEW) /hpf 10/04/16 10/04/16 10/04/16 Range/Units 12:35 12:35 12:35 WBC (3.98-10.04) K/mm3 RBC (3.98-5.22) M/mm3 Hgb (11.2-15.7) gm/L Hct (34.1-44.9) % MCV (79.4-94.8) fl MCH (25.6-32.2) pg MCHC (32.2-35.5) g/dl RDW Std Deviation (36.4-46.3) fL Plt Count (182-369) K/mm3 MPV (9.4-12.3) fl Neut % (Auto) (34.0-71.1) % Lymph % (Auto) (19.3-51.7) % [place] % (Auto) (4.7-12.5) % Eos % (Auto) (0.7-5.8) Baso % (Auto) (0.1-1.2) % Neut # (Auto) (1.56-6.13) K/mm3 Lymph # (Auto) (1.18-3.74) K/mm3 [place] # (Auto) (0.24-0.36) K/mm3 Eos # (Auto) (0.04-0.36) K/mm3 Baso # (Auto) (0.01-0.08) K/mm3 Manual Slide Review PT (8.0-13.0) SECONDS INR Sodium 137 (136-145) mEq/L Potassium 3.2 L (3.5-5.1) mEq/L Chloride 95 L (98-107) mEq/L Carbon Dioxide 33 H (21-32) mEq/L Anion Gap 12.2 (5-15) BUN 19 H (7-18) mg/dL Creatinine 1.4 H (0.55-1.02) mg/dL Est Cr Clr Drug Dosing 22.53 mL/min Estimated GFR (MDRD) 35 (>60) mL/min BUN/Creatinine Ratio 13.6 L (14-18) Glucose 238 H (83-115) mg/dL POC Glucose (83-110) mg/dL Calcium 9.1 (8.5-10.1) mg/dL Magnesium 2.0 (1.8-2.4) mg/dl Total Bilirubin 0.9 (0.2-1.0) mg/dL AST 19 (15-37) U/L ALT 34 (14-59) U/L Alkaline Phosphatase 32 L (46-116) U/L Troponin I (0.00-0.056) ng/mL B-Natriuretic Peptide 781 H (0-100) pg/mL Total Protein 6.8 (6.4-8.2) g/dl Albumin 3.5 (3.4-5.0) g/dl Globulin 3.3 gm/dL Albumin/Globulin Ratio 1.1 (1-2) Urine Color (Yellow) Urine Appearance (Clear) Urine pH (5.0-8.0) Ur Specific [place] (1.005-1.030) Urine Protein (Negative) Urine Glucose (UA) (Negative) Urine Ketones (Negative) Urine Occult Blood (Negative) Urine Nitrite (Negative) Urine Bilirubin (Negative) Urine Urobilinogen (0.2-1.0) Ur Leukocyte Esterase (Negative) Urine RBC (0-5) /hpf Urine WBC (0-5) /hpf Urine WBC Clumps (NOT SEEN) /hpf Ur Epithelial Cells (0-5) /hpf Urine Bacteria (FEW) /hpf Urine Mucus (FEW) /hpf 10/04/16 10/04/16 Range/Units 12:35 12:53 WBC (3.98-10.04) K/mm3 RBC (3.98-5.22) M/mm3 Hgb (11.2-15.7) gm/L Hct (34.1-44.9) % MCV (79.4-94.8) fl MCH (25.6-32.2) pg MCHC (32.2-35.5) g/dl RDW Std Deviation (36.4-46.3) fL Plt Count (182-369) K/mm3 MPV (9.4-12.3) fl Neut % (Auto) (34.0-71.1) % Lymph % (Auto) (19.3-51.7) % [place] % (Auto) (4.7-12.5) % Eos % (Auto) (0.7-5.8) Baso % (Auto) (0.1-1.2) % Neut # (Auto) (1.56-6.13) K/mm3 Lymph # (Auto) (1.18-3.74) K/mm3 [place] # (Auto) (0.24-0.36) K/mm3 Eos # (Auto) (0.04-0.36) K/mm3 Baso # (Auto) (0.01-0.08) K/mm3 Manual Slide Review PT (8.0-13.0) SECONDS INR Sodium (136-145) mEq/L Potassium (3.5-5.1) mEq/L Chloride (98-107) mEq/L Carbon Dioxide (21-32) mEq/L Anion Gap (5-15) BUN (7-18) mg/dL Creatinine (0.55-1.02) mg/dL Est Cr Clr Drug Dosing mL/min Estimated GFR (MDRD) (>60) mL/min BUN/Creatinine Ratio (14-18) Glucose (83-115) mg/dL POC Glucose (83-110) mg/dL Calcium (8.5-10.1) mg/dL Magnesium (1.8-2.4) mg/dl Total Bilirubin (0.2-1.0) mg/dL AST (15-37) U/L ALT (14-59) U/L Alkaline Phosphatase (46-116) U/L Troponin I < 0.017 (0.00-0.056) ng/mL B-Natriuretic Peptide (0-100) pg/mL Total Protein (6.4-8.2) g/dl Albumin (3.4-5.0) g/dl Globulin gm/dL Albumin/Globulin Ratio (1-2) Urine Color Dark yellow (Yellow) Urine Appearance Slt cloudy H (Clear) Urine pH 6.5 (5.0-8.0) Ur Specific [place] 1.020 (1.005-1.030) Urine Protein 1+ H (Negative) Urine Glucose (UA) Negative (Negative) Urine Ketones Negative (Negative) Urine Occult Blood 2+ H (Negative) Urine Nitrite Positive H (Negative) Urine Bilirubin Negative (Negative) Urine Urobilinogen 0.2 (0.2-1.0) Ur Leukocyte Esterase Trace H (Negative) Urine RBC 0-5 (0-5) /hpf Urine WBC 40-50 H (0-5) /hpf Urine WBC Clumps Few (NOT SEEN) /hpf Ur Epithelial Cells 5-10 H (0-5) /hpf Urine Bacteria Many H (FEW) /hpf Urine Mucus Not seen (FEW) /hpf Result Diagrams: 10/04/16 12:35 10/04/16 12:35 Imaging Impressions Last 24 hrs: CT of the head without contrast impression per Dr. Ryan: 1. Senescent change. No acute intracranial abnormality is identified. Chest [address] Ryan: Impression: 1. Multiple findings which are stable. Nothing acute is appreciated on frontal chest x-ray. Right knee [address] Ryan: Impression: 1. Degenerative change as described above. Nothing acute is identified on right knee exam. Right hip and pelvis impression per Dr. Ryan: Impression: 1. Degenerative change. 2. Nothing acute is identified on AP pelvis or on 2 view right hip study. Lumbar spine impression per Dr. Ryan: Impression: 1. Diffuse degenerative change as well as scoliosis and vascular calcification. 2. Spondylolisthesis at L4-L5 believed to be due to degenerative apophyseal change, but please correlate with the patient's symptoms and if patient has had sufficient trauma, CT could be considered to confirm this impression of degenerative change. Thoracic spin impression per Dr. Ryan: Impression: 1. Mild anterior wedging within the mid thoracic spine most likely old. 2. Degenerative change and mild scoliosis. CT of the lumbar spine impression per Dr. Ryan: Impression: 1. Degenerative change as described above. No acute fracture or acute subluxation is seen. EKG INTERPRETATION EKG Date: 10/11/16 Time: 12:40 Rhythm: A-Fib Rate (Beats/Min): 85 [place]: Normal P-Wave: Present QRS: Normal ST-T: Normal QT: Normal EKG Interpretation Comments: PVCs *Q Meaningful Use (ADM) - VTE *Q VTE Criteria *Q: - Stroke *Q Stroke Criteria *Q: - AMI *Q AMI Criteria *Q: Problem List Initiated/Reviewed/Updated: Yes Orders Last 24hrs: Active Orders 24 hr Category Date Time Status EKG Documentation Completion [RC] STAT Care 10/04/16 12:02 Active Insert Quinones Catheter [Insert Urinary Catheter] [OM.PC] Care 10/04/16 12:50 Ordered Stat Peripheral IV Care [RC] . DIRECTED Care 10/04/16 12:04 Active Urinary Catheter Assessment [RC] ASDIRECTED Care 10/04/16 12:50 Active Chest 1V Frontal [CR] Stat Exams 10/04/16 12:02 Taken Hip Min 2V or 3V w Pelvis Rt [CR] Stat Exams 10/04/16 12:02 Taken Hip wo Cont Rt [CT] Stat Exams 10/04/16 13:29 Taken Knee Min 4V Rt [CR] Stat Exams 10/04/16 12:02 Taken Lumbar Spine 2 or 3V [CR] Stat Exams 10/04/16 12:02 Taken Thoracic Spine 2V [CR] Stat Exams 10/04/16 12:02 Taken CULTURE URINE [RM] Stat Lab 10/04/16 12:53 Received Sodium Chloride 0.9% [Normal Saline] 1,000 ml Med 10/04/16 13:15 Active IV ONETIME Sodium Chloride 0.9% [Saline Flush] Med 10/04/16 12:04 Active 10 ml FLUSH ASDIRECTED PRN Peripheral IV Insertion Adult [OM.PC] Routine Oth 10/04/16 12:04 Ordered Medication Orders Sodium Chloride (Normal Saline) 1,000 mls @ 100 mls/hr IV ONETIME ONE Stop: 10/04/16 23:14 Last Admin: 10/04/16 14:25 Dose: 100 mls/hr Sodium Chloride (Saline Flush) 10 ml FLUSH ASDIRECTED PRN PRN Reason: Keep Vein Open Last Admin: 10/04/16 12:41 Dose: 10 ml Assessment/Plan Comment:: Assessment/Plan: Acute: UTI-Uncomplicated - UA suggestive for UTI - Received IV Rocephin x1 in ED - Pending Cx/Sx - Continue IV Abx Hyperglycemia with DM2 - She is on Steroid for skin disorder - ISS and Accu-check - A1C check Leukocytosis - WBC 13.92 - 2/2 Above - Monitor Acute on Chronic Pain Syndrome - Low dose oxycodone po BID and PRN narcotic pills - Low dose zanaflex TID for muscle spasms - Will avoid lidocaine or fentanyl patch to minimize skin irritation/ hypersensitivity Back Pain Status Post Fall - Risk Factor: Diffuse Advanced DJD/OA - Imaging Study: No acute abnormal findings - Supportive Care - PT/OT consult Hypokalemia - K 3.2 - Received IV supplement in ED - Pharmacy to replete and monitor in am Generalized Weakness - 2/2 Above - Vit D level and TFT - PT/OT consult High Risk Osteoporosis - She has been on Prednisone for 5 years now - Recommend taper to come off Chronic: A-fib, HR controlled, on Eliquis HTN HF with Preserved EF (Unknown last 2D echo) Osteopenia, S/p DEXA Scan 01/24/2016 Renal Insufficiency Hx/o Bullous Penphigoid Plan: Admit to Med-Surg Routine AM Labs Resume Home Meds Dietary Consult to improve weakness PT/OT consult SW/CM for d/c planning Code status: DNR/DNI Recommend SNF/NH placement
[2016-10-04] MEDS ORDERED: HYDROmorphone 0.5 MG/0.5 ML Syringe IVPUSH PRN (16:24)
[2016-10-04] MEDS ORDERED: LORazepam 2 MG/ML MDV IV PRN (16:24)
[2016-10-04] MEDS ORDERED: Temazepam 15 MG Cap PO PRN (16:24)
[2016-10-04] MEDS ORDERED: Polyethylene Glycol 3350 Powder 17 GM Packet PO PRN (16:24)
[2016-10-04] MEDS ORDERED: Promethazine 12.5 MG in Sodium Chloride 0.9% 50 ML IV PRN (16:24)
[2016-10-04] MEDS ORDERED: Acetaminophen/HYDROcodone 325-5 MG Tab PO PRN (16:24)
[2016-10-04] MEDS ORDERED: Bisacodyl 5 MG Tab PO PRN (16:24)
[2016-10-04] MEDS ORDERED: Albuterol/Ipratropium 3.0-0.5 MG/3 ML Neb Soln NEB PRN (16:24)
[2016-10-04] MEDS ORDERED: Docusate Sodium 100 MG Cap PO PRN (16:24)
[2016-10-04] MEDS ORDERED: Ondansetron 4 MG/2 ML SDV IV PRN (16:24)
[2016-10-04] MEDS ORDERED: Metoprolol Tartrate 5 MG/5 ML SDV IVPUSH PRN (16:30)
[2016-10-04] MEDS ORDERED: hydrALAZINE 20 MG/ML SDV IVPUSH PRN (16:30)
[2016-10-04] MEDS ORDERED: 50% Dextrose in Water 50 ML Syringe IVPUSH PRN (16:31)
[2016-10-04] MEDS ORDERED: tiZANidine 4 MG Tab PO PRN (16:34)
[2016-10-04] MEDS: Insulin Aspart 100 Units/ML 3 ML Pen SUBCUT SCH ×2 (18:48→21:17)
--- NOTE | 2016-10-04 19:07 | CR ---
Lumbar spine: AP, lateral and coned-down lateral views centered to the lumbosacral junction were obtained. Comparison: No previous lumbar spine imaging. Spondylolisthesis is noted at L4-L5. Spondylolisthesis measures approximately 9 mm. This is most likely due to degenerative apophyseal change. Disc space narrowing is seen at L2-L3, L3-L4 and L5-S1. Posterior disc space narrowing is noted at L4-L5 and at L1-L2. Scattered endplate osteophytes are seen. Mild scoliosis is noted. Pedicles as well as transverse and spinous processes are intact. Joint space narrowing and sclerosis is seen within the left sacroiliac joint. Scattered degenerative spurring is noted within visualized portions of the thoracic spine. Thoracic scoliosis is noted. Vascular calcification is seen. Impression: 1. Diffuse degenerative change as well as scoliosis and vascular calcification. 2. Spondylolisthesis at L4-L5 believed to be due to degenerative apophyseal change, but please correlate with the patient's symptoms and if patient has had sufficient trauma, CT could be considered to confirm this impression of degenerative change. Diagnostic code #3
[2016-10-04] MEDS: Gabapentin 100 MG Cap PO SCH (20:45)
[2016-10-04] MEDS: Apixaban 5 MG Tab PO SCH (20:45)
[2016-10-04] MEDS: oxyCODONE 5 MG Tab PO SCH (20:45)
[2016-10-04] MEDS: Latanoprost 0.005% Ophth Soln 2.5 ML Bottle EYEBOTH SCH (20:53)
[2016-10-04] MEDS: Tiotropium Inhaler 18 MCG Inhalation Powder Cap Kit of 5 INH SCH (20:59)
[2016-10-04] MEDS ORDERED: oxyCODONE ER 10 MG TAB.ER PO SCH ×2 (21:00)
[2016-10-05] MEDS: Pantoprazole 40 MG Tab.CR PO SCH (06:04)
--- NOTE | 2016-10-05 06:51 | CR ---
Thoracic spine: Lateral view and AP views of the thoracic spine was obtained. Disc space narrowing is noted within the mid to lower thoracic spine. Diffuse endplate osteophytes are also seen within the mid to lower thoracic spine. Minimal anterior wedge deformity is seen within the mid thoracic spine which is likely old. Mild scoliosis is seen. No abnormal subluxation is seen within the thoracic spine. Impression: 1. Mild anterior wedging within the mid thoracic spine most likely old. 2. Degenerative change and mild scoliosis. Diagnostic code #3
--- NOTE | 2016-10-05 06:51 | CR ---
Pelvis and right hip: AP view of the pelvis was obtained as well as AP and frog-leg lateral views of the right hip. Degenerative change is partially seen within the lower lumbar spine. Degenerative sclerosis is noted within the left sacroiliac joint with narrowing of the joint. Mild joint space narrowing is seen within the left hip. Vascular calcification is noted. No acute fracture or other abnormality is appreciated. Impression: 1. Degenerative change. 2. Nothing acute is identified on AP pelvis or on two-view right hip study. Diagnostic code #2
--- NOTE | 2016-10-05 06:51 | CR ---
Chest: Frontal view of the chest was obtained. Comparison: Previous chest x-ray of 01/15/13. Heart size is normal. Tortuous thoracic aorta is seen. Atherosclerotic calcification is seen within the aortic knob. Lungs are clear with no acute infiltrates. Scoliosis and mild degenerative change is seen within the spine. Surgical clips are seen from prior cholecystectomy. Impression: 1. Multiple findings which are stable. Nothing acute is appreciated on frontal chest x-ray. Diagnostic code #2
--- NOTE | 2016-10-05 06:51 | CR ---
Right knee: Four views of the right knee were obtained. Comparison: No previous knee study. Joint spaces are fairly well preserved. Chondrocalcinosis is noted within the medial and lateral menisci. Vascular calcification is seen. Incidental spur at the attachment of the quadriceps tendon to the patella is seen. No acute fracture or other abnormality is seen. Impression: 1. Degenerative change as described above. Nothing acute is identified on right knee exam. Diagnostic code #2
[2016-10-05] MEDS: Insulin Aspart 100 Units/ML 3 ML Pen SUBCUT SCH ×4 (07:00→21:43)
--- NOTE | 2016-10-05 07:31 | PCM.PN ---
- General Info Date of Service: 10/05/16 Admission Dx/Problem (Free Text): Acute on Chronic Pain--back pain, fall, UTI Sherry is seen on team rounding this morning. Pain is much better controlled now. Slept well. Appetite is improved. Has been up with PT who recommends SNF. SW working with family, hopeful for placement at [facility] in [place]. Functional Status: Reports: pain controlled, tolerating diet, ambulating - Review of Systems General: Reports: Weakness HEENT: Reports: no symptoms Pulmonary: Reports: no symptoms Cardiovascular: Reports: No Symptoms Gastrointestinal: Reports: No symptoms Genitourinary: Reports: no symptoms. Denies: dysuria, frequency, urgency Musculoskeletal: Reports: other (chronic back pain) Neurological: Reports: No Symptoms Psychiatric: Reports: no symptoms - Patient Data Vitals - most recent: Last Vital Signs Temp 97.2 F 10/05/16 03:35 Pulse 75 10/05/16 03:35 Resp 16 10/05/16 03:35 BP 113/68 10/05/16 03:35 Pulse Ox 96 10/05/16 03:35 Weight - most recent: 160 lb 4.8 oz I&O - last 24 hours: Intake & Output 10/04/16 10/05/16 10/05/16 22:59 06:59 14:59 Intake Total 100 1243 Output Total 100 350 Balance 0 893 Lab Results last 24 hrs: Laboratory Results - last 24 hr 10/04/16 10/04/16 10/05/16 Range/Units 20:48 23:15 05:49 WBC 9.25 (3.98-10.04) K/mm3 RBC 4.57 (3.98-5.22) M/mm3 Hgb 13.8 (11.2-15.7) gm/L Hct 42.4 (34.1-44.9) % MCV 92.8 (79.4-94.8) fl MCH 30.2 (25.6-32.2) pg MCHC 32.5 (32.2-35.5) g/dl RDW Std Deviation 50.2 H (36.4-46.3) fL Plt Count 206 (182-369) K/mm3 MPV 10.4 (9.4-12.3) fl Neut % (Auto) 71.0 (34.0-71.1) % Lymph % (Auto) 12.6 L (19.3-51.7) % [place] % (Auto) 12.1 (4.7-12.5) % Eos % (Auto) 0.4 L (0.7-5.8) Baso % (Auto) 0.3 (0.1-1.2) % Neut # (Auto) 6.56 H (1.56-6.13) K/mm3 Lymph # (Auto) 1.17 L (1.18-3.74) K/mm3 [place] # (Auto) 1.12 H (0.24-0.36) K/mm3 Eos # (Auto) 0.04 (0.04-0.36) K/mm3 Baso # (Auto) 0.03 (0.01-0.08) K/mm3 Manual Slide Review Abnormal smear Sodium (136-145) mEq/L Potassium (3.5-5.1) mEq/L Chloride (98-107) mEq/L Carbon Dioxide (21-32) mEq/L Anion Gap (5-15) BUN (7-18) mg/dL Creatinine (0.55-1.02) mg/dL Est Cr Clr Drug Dosing mL/min Estimated GFR (MDRD) (>60) mL/min BUN/Creatinine Ratio (14-18) Glucose (83-115) mg/dL POC Glucose 210 H (83-110) mg/dL Calcium (8.5-10.1) mg/dL Magnesium (1.8-2.4) mg/dl MRSA (PCR) Negative 10/05/16 10/05/16 Range/Units 05:49 06:27 WBC (3.98-10.04) K/mm3 RBC (3.98-5.22) M/mm3 Hgb (11.2-15.7) gm/L Hct (34.1-44.9) % MCV (79.4-94.8) fl MCH (25.6-32.2) pg MCHC (32.2-35.5) g/dl RDW Std Deviation (36.4-46.3) fL Plt Count (182-369) K/mm3 MPV (9.4-12.3) fl Neut % (Auto) (34.0-71.1) % Lymph % (Auto) (19.3-51.7) % [place] % (Auto) (4.7-12.5) % Eos % (Auto) (0.7-5.8) Baso % (Auto) (0.1-1.2) % Neut # (Auto) (1.56-6.13) K/mm3 Lymph # (Auto) (1.18-3.74) K/mm3 [place] # (Auto) (0.24-0.36) K/mm3 Eos # (Auto) (0.04-0.36) K/mm3 Baso # (Auto) (0.01-0.08) K/mm3 Manual Slide Review Sodium 140 (136-145) mEq/L Potassium 2.7 L (3.5-5.1) mEq/L Chloride 101 (98-107) mEq/L Carbon Dioxide 30 (21-32) mEq/L Anion Gap 11.7 (5-15) BUN 18 (7-18) mg/dL Creatinine 1.1 H (0.55-1.02) mg/dL Est Cr Clr Drug Dosing 28.68 mL/min Estimated GFR (MDRD) 47 (>60) mL/min BUN/Creatinine Ratio 16.4 (14-18) Glucose 88 (83-115) mg/dL POC Glucose 90 (83-110) mg/dL Calcium 8.2 L (8.5-10.1) mg/dL Magnesium 1.8 (1.8-2.4) mg/dl MRSA (PCR) Med Orders - Current: Current Medications Hydrocodone Bitart/Acetaminophen ([place] 325-5 Mg) 1 tab PO Q4H PRN PRN Reason: Pain (moderate 4-6) Albuterol/Ipratropium (Duoneb 3.0-0.5 Mg/3 Ml) 3 ml NEB Q4H PRN PRN Reason: Shortness Of Breath/wheezing Apixaban (Eliquis) 2.5 mg PO BID [facility] Last Admin: 10/04/16 20:45 Dose: 2.5 mg Atenolol (Tenormin) 100 mg PO DAILY [facility] Bisacodyl (Dulcolax) 5 mg PO DAILY PRN PRN Reason: Constipation Calcium Carbonate (Calcium Carbonate/Vitamin D 1500 Mg-200 Unit) 1 tab PO DAILY [facility] Dextrose/Water (Dextrose 50% In Water) 50 ml IVPUSH ASDIRECTED PRN PRN Reason: Hypoglycemia Diphtheria/Tetanus/Acell Pertussis (Adacel) 0.5 ml IM .ONCE ONE Stop: 10/06/16 18:26 Docusate Sodium (Colace) 100 mg PO BID PRN PRN Reason: Constipation Furosemide (Lasix) 40 mg PO DAILY [facility] Gabapentin (Neurontin) 100 mg PO BEDTIME [facility] Last Admin: 10/04/16 20:45 Dose: 100 mg Hydralazine HCl (Apresoline) 10 mg IVPUSH Q4H PRN PRN Reason: Hypertension Hydromorphone HCl (Dilaudid) 0.25 mg IVPUSH Q4H PRN PRN Reason: Pain (severe 7-10) Promethazine HCl 12.5 mg/ (Sodium Chloride) 50.5 mls @ 100 mls/hr IV Q6H PRN PRN Reason: Nausea/Vomiting Ceftriaxone Sodium 1 gm/ (Sodium Chloride) 100 mls @ 200 mls/hr IV Q24H [facility] Insulin Aspart (Novolog) 0 unit SUBCUT QIDACANDBED [facility] PRN Reason: Protocol Last Admin: 10/05/16 07:00 Dose: Not Given Insulin Detemir (Levemir) 7 unit SUBCUT BEDTIME [facility] Insulin Detemir (Levemir) 8 unit SUBCUT DAILY [facility] Latanoprost (Xalatan 0.005% Ophth Soln) 0 ml EYEBOTH BEDTIME [facility] Last Admin: 10/04/16 20:53 Dose: 1 drop Loperamide HCl (Imodium) 2 mg PO DAILY [facility] Lorazepam (Ativan) 0.25 mg IV Q6H PRN PRN Reason: Anxiety Losartan Potassium (Cozaar) 25 mg PO DAILY [facility] Magnesium Sulfate (Pharmacy To Dose - Magnesium Replacement) 1 dose .XX ASDIRECTED [facility] Metoprolol Tartrate (Lopressor) 5 mg IVPUSH Q4H PRN PRN Reason: Tachycardia Multivitamins (Thera) 1 each PO DAILY [facility] Ondansetron HCl (Zofran) 4 mg IV Q6H PRN PRN Reason: Nausea/Vomiting Oxycodone HCl (Oxycodone) 5 mg PO Q12HR [facility] Last Admin: 10/04/16 20:45 Dose: 5 mg Pantoprazole Sodium (Protonix) 40 mg PO DAILY@0700 [facility] Last Admin: 10/05/16 06:04 Dose: 40 mg Ubidecarenone 100 Mg 0 each PO DAILY [facility] Polyethylene Glycol (Miralax) 17 gm PO DAILY PRN PRN Reason: Constipation Potassium Chloride (Pharmacy To Dose - Potassium Replacement) 1 dose .XX ASDIRECTED [facility] Prednisone (Prednisone) 15 mg PO DAILY [facility] Saccharomyces Boulardii (Florastor) 250 mg PO DAILY [facility] Saxagliptin Hydrochloride (Onglyza) 5 mg PO DAILY [facility] Senna/Docusate Sodium (Senna Plus) 1 tab PO BID PRN PRN Reason: Constipation Sodium Chloride (Saline Flush) 10 ml FLUSH ASDIRECTED PRN PRN Reason: Keep Vein Open Last Admin: 10/04/16 12:41 Dose: 10 ml Temazepam (Restoril) 7.5 mg PO BEDTIME PRN PRN Reason: Sleep Tiotropium Kelly (Spiriva Handihaler) 18 mcg INH DAILY [facility] Last Admin: 10/04/16 20:59 Dose: 1 puff Tizanidine HCl (Zanaflex) 2 mg PO Q6H PRN PRN Reason: Muscle Spasm Discontinued Medications Acetaminophen (Tylenol) 650 mg PO NOW ONE Stop: 10/04/16 13:32 Last Admin: 10/04/16 14:32 Dose: 650 mg Diazepam (Valium) 2 mg IVPUSH ONETIME ONE Stop: 10/04/16 12:16 Last Admin: 10/04/16 12:41 Dose: 2 mg Diazepam (Valium) 2 mg IVPUSH ONETIME ONE Stop: 10/04/16 13:32 Last Admin: 10/04/16 14:28 Dose: 2 mg Hydromorphone HCl (Dilaudid) 0.25 mg IVPUSH ONETIME ONE Stop: 10/04/16 15:19 Last Admin: 10/04/16 15:39 Dose: 0.25 mg Sodium Chloride (Normal Saline) 1,000 mls @ 100 mls/hr IV ONETIME ONE Stop: 10/04/16 23:14 Last Admin: 10/04/16 14:25 Dose: 100 mls/hr Ceftriaxone Sodium 1 gm/ (Sodium Chloride) 100 mls @ 200 mls/hr IV ONETIME ONE Stop: 10/04/16 16:03 Last Admin: 07/05/17 15:59 Dose: 200 mls/hr Non-Formulary Medication (Lactobacillus Acidophilus [Acidophilus]) 1 tab PO DAILY [facility] Oxycodone HCl (Oxycontin) 10 mg PO Q12HR [facility] Oxycodone HCl (Oxycontin) 5 mg PO Q12HR [facility] Potassium Chloride (Klor-Con M20) 20 meq PO ONETIME ONE Stop: 10/04/16 15:32 Last Admin: 10/04/16 15:41 Dose: 20 meq - Exam Quality Assessment: DVT prophylaxis General: alert, oriented, cooperative, no acute distress, other (generalized weakness) HEENT: Pupils equal, Pupils reactive, EOMI, Mucous membr. moist/pink Neck: supple Lungs: Clear to auscultation, Normal respiratory effort, Decreased breath sounds (bases bilat) Cardiovascular: Irregular Rhythm Abdomen: bowel sounds present, soft, no tenderness, no distension (Female) Exam: Deferred Back Exam: Muscle Spasm Extremities: edema (1+ to ankles bialt) Peripheral Pulses: 1+: Dorsalis Pedis (L), Dorsalis Pedis (R) Neurological: no new focal deficit Psy/Mental Status: alert, normal affect, normal mood - Problem List & Annotations (1) Acute exacerbation of chronic low back pain SNOMED Code(s): 523518094 Code(s): M54.5 - LOW BACK PAIN; G89.29 - OTHER CHRONIC PAIN Status: Acute Priority: High Current Visit: Yes (2) Fall at home SNOMED Code(s): 39182939 Code(s): W19.XXXA - UNSPECIFIED FALL, INITIAL ENCOUNTER; Y92.099 - UNSP PLACE IN OTH NON-INSTITUTIONAL RESIDENCE PLACE Status: Acute Priority: High Current Visit: Yes Qualifiers: Encounter type: initial encounter Qualified Code(s): W19.XXXA - Unspecified fall, initial encounter; Y92.099 - Unspecified place in other non- institutional residence as the place of occurrence of the external cause (3) UTI (urinary tract infection) SNOMED Code(s): 96133624 Code(s): N39.0 - URINARY TRACT INFECTION, SITE NOT SPECIFIED Status: Acute Priority: High Current Visit: Yes Qualifiers: Urinary tract infection type: acute cystitis Hematuria presence: without hematuria Qualified Code(s): N30.00 - Acute cystitis without hematuria (4) DJD (degenerative joint disease) SNOMED Code(s): 595552129 Code(s): M19.90 - UNSPECIFIED OSTEOARTHRITIS, UNSPECIFIED SITE Status: Chronic Priority: Medium Current Visit: Yes Qualifiers: Osteoarthritis location: unspecified site (5) Diabetes mellitus SNOMED Code(s): 24495882 Code(s): E11.9 - TYPE 2 DIABETES MELLITUS WITHOUT COMPLICATIONS Status: Chronic Priority: Medium Current Visit: Yes Qualifiers: Diabetes mellitus type: type 2 Diabetes mellitus fdc insulin use: with fdc use (6) Hypokalemia SNOMED Code(s): 87759700 Code(s): E87.6 - HYPOKALEMIA Status: Acute Priority: High Current Visit : Yes - Problem List Review Problem List Initiated/Reviewed/Updated: Yes - Plan Plan:: Assessment/Plan: Acute: UTI-Uncomplicated - UA suggestive for UTI - Received IV Rocephin x1 in ED, continue - Pending Cx/Sx--preliminary with ecoli - Continue IV Abx Hyperglycemia with DM2 - She is on Steroid for skin disorder - ISS and Accu-check - A1C check --8.9 - Cont usual home meds for now Leukocytosis - WBC 13.92--improved - 2/2 Above - Monitor Acute on Chronic Pain Syndrome--pain improved - Low dose oxycodone po BID and PRN narcotic pills - Low dose zanaflex TID for muscle spasms - Will avoid lidocaine or fentanyl patch to minimize skin irritation/ hypersensitivity Back Pain Status Post Fall - Risk Factor: Diffuse Advanced DJD/OA - Imaging Studies: No acute abnormal findings - Supportive Care, PRN pain medications - PT/OT consult Hypokalemia - K 3.2 --- 2.8 - Received IV supplement in ED - Pharmacy to replete and monitor Generalized Weakness - 2/2 Above - Vit D level and TFT - PT/OT consult High Risk Osteoporosis - She has been on Prednisone for 5 years now for skin condition, followed by Dermatology and PCP - Recommend taper to come off Chronic: A-fib, HR controlled, on Eliquis--no telemetry concerns overnight HTN- controlled HF with Preserved EF (Unknown last 2D echo) Osteopenia, S/p DEXA Scan 01/24/2016 Renal Insufficiency Hx/o Bullous Penphigoid Plan: Admit to Med-Surg Routine AM Labs Resume Home Meds Dietary Consult to improve weakness PT/OT consult SW/CM for d/c planning DVT/GI prophylax Code status: DNR/DNI Recommend SNF/NH placement--likely DC to [facility]; Likely dc in next 48 hours, will need 3 days of IV abx tx for AUTI.
[2016-10-05] MEDS: Saccharomyces Boulardii (Probiotic) 250 MG Cap PO SCH (08:21)
[2016-10-05] MEDS: Potassium Chloride 20 MEQ Tab.ER PO SCH ×3 (08:21→18:05)
[2016-10-05] MEDS: cefTRIAXone 1 GM in Sodium Chloride 0.9% 100 ML IV SCH (08:21)
[2016-10-05] MEDS: predniSONE 5 MG Tab PO SCH (08:22)
[2016-10-05] MEDS: Insulin Detemir 100 Units/ML 3 ML Pen SUBCUT SCH ×2 (08:22→21:42)
[2016-10-05] MEDS: Furosemide 40 MG Tab PO SCH (08:22)
[2016-10-05] MEDS: Loperamide 2 MG Cap PO SCH (08:22)
[2016-10-05] MEDS: Multivitamins,Therapeutic Tab PO SCH (08:22)
[2016-10-05] MEDS: Calcium Carbonate/Vitamin D3 1500 MG-200 Units Tab PO SCH (08:22)
[2016-10-05] MEDS: Losartan 25 MG Tab PO SCH (08:26)
[2016-10-05] MEDS: oxyCODONE 5 MG Tab PO SCH ×2 (08:27→20:26)
[2016-10-05] MEDS: Atenolol 50 MG Tab PO SCH (08:27)
[2016-10-05] MEDS: Apixaban 5 MG Tab PO SCH ×2 (08:27→20:25)
[2016-10-05] MEDS ORDERED: Magnesium Oxide 400 MG Tab PO ONE (08:30)
--- NOTE | 2016-10-05 08:52 | CT ---
CT right hip Technique: Multiple axial sections through the right hip were obtained. Reconstructed coronal and sagittal images were reviewed. Comparison: Previous plain film study performed on the same day. Findings: Degenerative change is noted within the pubic symphysis. Joint space narrowing is seen. Vascular calcification is noted. No acute fracture is identified. Impression: 1. Findings as noted above. No acute fracture is appreciated on CT study of the right hip. Diagnostic code #2 MTDD
[2016-10-05] MEDS: Tiotropium Inhaler 18 MCG Inhalation Powder Cap Kit of 5 INH SCH (08:58)
[2016-10-05] MEDS ORDERED: LACTOBACILLUS ACIDOPHILUS PO SCH (09:00)
[2016-10-05] MEDS: Saxagliptin 5 MG Tab PO SCH (11:36)
[2016-10-05] MEDS: Gabapentin 100 MG Cap PO SCH ×2 (20:26→20:34)
[2016-10-05] MEDS: Latanoprost 0.005% Ophth Soln 2.5 ML Bottle EYEBOTH SCH (20:27)
[2016-10-06] MEDS: Pantoprazole 40 MG Tab.CR PO SCH (06:16)
[2016-10-06] MEDS: Insulin Aspart 100 Units/ML 3 ML Pen SUBCUT SCH ×4 (06:16→21:32)
--- NOTE | 2016-10-06 07:44 | PCM.PN ---
<Venessa Escoto M - Last Filed: 10/06/16 11:08> - General Info Date of Service: 10/06/16 Admission Dx/Problem (Free Text): Acute on Chronic Pain--back pain, fall, UTI Sherry is seen on team rounding this morning. Pain is much better controlled now. Slept well. Appetite is improved. VSS. Has been up with PT who recommends SNF. SW working with family, hopeful for placement at [facility] in [place]. Functional Status: Reports: pain controlled, tolerating diet, ambulating, urinating. Denies: new symptoms - Review of Systems General: Reports: No Symptoms, Weakness (improved), Appetite (improved) HEENT: Reports: no symptoms Pulmonary: Reports: no symptoms Cardiovascular: Reports: No Symptoms Gastrointestinal: Reports: No symptoms Genitourinary: Reports: no symptoms Musculoskeletal: Reports: back pain (chronic- improved with current pain regimen ) Skin: Reports: no symptoms Neurological: Reports: No Symptoms Psychiatric: Reports: no symptoms - Patient Data Vitals - most recent: Last Vital Signs Temp 97.3 F 10/06/16 07:29 Pulse 70 10/06/16 07:29 Resp 20 10/06/16 07:29 BP 123/66 10/06/16 07:29 Pulse Ox 98 10/06/16 07:29 Weight - most recent: 72.938 kg I&O - last 24 hours: Intake & Output 10/05/16 10/06/16 10/06/16 22:59 06:59 14:59 Intake Total 100 425 Output Total 500 Balance 100 -75 Lab Results last 24 hrs: Laboratory Results - last 24 hr 10/05/16 10/05/16 10/05/16 Range/Units 05:49 11:10 16:00 WBC (3.98-10.04) K/mm3 RBC (3.98-5.22) M/mm3 Hgb (11.2-15.7) gm/L Hct (34.1-44.9) % MCV (79.4-94.8) fl MCH (25.6-32.2) pg MCHC (32.2-35.5) g/dl RDW Std Deviation (36.4-46.3) fL Plt Count (182-369) K/mm3 MPV (9.4-12.3) fl Neut % (Auto) (34.0-71.1) % Lymph % (Auto) (19.3-51.7) % [place] % (Auto) (4.7-12.5) % Eos % (Auto) (0.7-5.8) Baso % (Auto) (0.1-1.2) % Neut # (Auto) (1.56-6.13) K/mm3 Lymph # (Auto) (1.18-3.74) K/mm3 [place] # (Auto) (0.24-0.36) K/mm3 Eos # (Auto) (0.04-0.36) K/mm3 Baso # (Auto) (0.01-0.08) K/mm3 Manual Slide Review Sodium 140 (136-145) mEq/L Potassium 2.7 L (3.5-5.1) mEq/L Chloride 101 (98-107) mEq/L Carbon Dioxide 30 (21-32) mEq/L Anion Gap 11.7 (5-15) BUN 18 (7-18) mg/dL Creatinine 1.1 H (0.55-1.02) mg/dL Est Cr Clr Drug Dosing 28.68 mL/min Estimated GFR (MDRD) 47 (>60) mL/min BUN/Creatinine Ratio 16.4 (14-18) Glucose 88 (83-115) mg/dL POC Glucose 146 H 212 H (83-110) mg/dL Calcium 8.2 L (8.5-10.1) mg/dL Magnesium 1.8 (1.8-2.4) mg/dl C-Reactive Protein < 0.2 (<1.0) mg/dL 10/05/16 10/06/16 10/06/16 Range/Units 21:41 05:53 05:53 WBC 10.63 H (3.98-10.04) K/mm3 RBC 4.57 (3.98-5.22) M/mm3 Hgb 13.9 (11.2-15.7) gm/L Hct 43.3 (34.1-44.9) % MCV 94.7 (79.4-94.8) fl MCH 30.4 (25.6-32.2) pg MCHC 32.1 L (32.2-35.5) g/dl RDW Std Deviation 51.8 H (36.4-46.3) fL Plt Count 226 (182-369) K/mm3 MPV 10.4 (9.4-12.3) fl Neut % (Auto) 72.4 H (34.0-71.1) % Lymph % (Auto) 11.6 L (19.3-51.7) % [place] % (Auto) 10.9 (4.7-12.5) % Eos % (Auto) 0.5 L (0.7-5.8) Baso % (Auto) 0.4 (0.1-1.2) % Neut # (Auto) 7.70 H (1.56-6.13) K/mm3 Lymph # (Auto) 1.23 (1.18-3.74) K/mm3 [place] # (Auto) 1.16 H (0.24-0.36) K/mm3 Eos # (Auto) 0.05 (0.04-0.36) K/mm3 Baso # (Auto) 0.04 (0.01-0.08) K/mm3 Manual Slide Review Normal smear Sodium 141 (136-145) mEq/L Potassium 4.1 (3.5-5.1) mEq/L Chloride 104 (98-107) mEq/L Carbon Dioxide 28 (21-32) mEq/L Anion Gap 13.1 (5-15) BUN 20 H (7-18) mg/dL Creatinine 1.2 H (0.55-1.02) mg/dL Est Cr Clr Drug Dosing 26.29 mL/min Estimated GFR (MDRD) 42 (>60) mL/min BUN/Creatinine Ratio 16.7 (14-18) Glucose 85 (83-115) mg/dL POC Glucose 217 H (83-110) mg/dL Calcium 8.7 (8.5-10.1) mg/dL Magnesium 1.9 (1.8-2.4) mg/dl C-Reactive Protein (<1.0) mg/dL 10/06/16 Range/Units 06:14 WBC (3.98-10.04) K/mm3 RBC (3.98-5.22) M/mm3 Hgb (11.2-15.7) gm/L Hct (34.1-44.9) % MCV (79.4-94.8) fl MCH (25.6-32.2) pg MCHC (32.2-35.5) g/dl RDW Std Deviation (36.4-46.3) fL Plt Count (182-369) K/mm3 MPV (9.4-12.3) fl Neut % (Auto) (34.0-71.1) % Lymph % (Auto) (19.3-51.7) % [place] % (Auto) (4.7-12.5) % Eos % (Auto) (0.7-5.8) Baso % (Auto) (0.1-1.2) % Neut # (Auto) (1.56-6.13) K/mm3 Lymph # (Auto) (1.18-3.74) K/mm3 [place] # (Auto) (0.24-0.36) K/mm3 Eos # (Auto) (0.04-0.36) K/mm3 Baso # (Auto) (0.01-0.08) K/mm3 Manual Slide Review Sodium (136-145) mEq/L Potassium (3.5-5.1) mEq/L Chloride (98-107) mEq/L Carbon Dioxide (21-32) mEq/L Anion Gap (5-15) BUN (7-18) mg/dL Creatinine (0.55-1.02) mg/dL Est Cr Clr Drug Dosing mL/min Estimated GFR (MDRD) (>60) mL/min BUN/Creatinine Ratio (14-18) Glucose (83-115) mg/dL POC Glucose 91 (83-110) mg/dL Calcium (8.5-10.1) mg/dL Magnesium (1.8-2.4) mg/dl C-Reactive Protein (<1.0) mg/dL Med Orders - Current: Current Medications Hydrocodone Bitart/Acetaminophen ([place] 325-5 Mg) 1 tab PO Q4H PRN PRN Reason: Pain (moderate 4-6) Albuterol/Ipratropium (Duoneb 3.0-0.5 Mg/3 Ml) 3 ml NEB Q4H PRN PRN Reason: Shortness Of Breath/wheezing Apixaban (Eliquis) 2.5 mg PO BID [facility] Last Admin: 10/05/16 20:25 Dose: 2.5 mg Atenolol (Tenormin) 100 mg PO DAILY [facility] Last Admin: 10/05/16 08:27 Dose: 100 mg Bisacodyl (Dulcolax) 5 mg PO DAILY PRN PRN Reason: Constipation Calcium Carbonate (Calcium Carbonate/Vitamin D 1500 Mg-200 Unit) 1 tab PO DAILY [facility] Last Admin: 10/05/16 08:22 Dose: 1 tab Dextrose/Water (Dextrose 50% In Water) 50 ml IVPUSH ASDIRECTED PRN PRN Reason: Hypoglycemia Diphtheria/Tetanus/Acell Pertussis (Adacel) 0.5 ml IM .ONCE ONE Stop: 10/06/16 18:26 Docusate Sodium (Colace) 100 mg PO BID PRN PRN Reason: Constipation Furosemide (Lasix) 40 mg PO DAILY [facility] Last Admin: 10/05/16 08:22 Dose: 40 mg Gabapentin (Neurontin) 100 mg PO BEDTIME [facility] Last Admin: 10/05/16 20:34 Dose: 100 mg Hydralazine HCl (Apresoline) 10 mg IVPUSH Q4H PRN PRN Reason: Hypertension Hydromorphone HCl (Dilaudid) 0.25 mg IVPUSH Q4H PRN PRN Reason: Pain (severe 7-10) Promethazine HCl 12.5 mg/ (Sodium Chloride) 50.5 mls @ 100 mls/hr IV Q6H PRN PRN Reason: Nausea/Vomiting Ceftriaxone Sodium 1 gm/ (Sodium Chloride) 100 mls @ 200 mls/hr IV Q24H [facility] Last Admin: 10/05/16 08:21 Dose: 200 mls/hr Insulin Aspart (Novolog) 0 unit SUBCUT QIDACANDBED [facility] PRN Reason: Protocol Last Admin: 10/06/16 06:16 Dose: Not Given Insulin Detemir (Levemir) 7 unit SUBCUT BEDTIME [facility] Last Admin: 10/05/16 21:42 Dose: 7 unit Insulin Detemir (Levemir) 8 unit SUBCUT DAILY [facility] Last Admin: 10/05/16 08:22 Dose: 8 units Latanoprost (Xalatan 0.005% Ophth Soln) 0 ml EYEBOTH BEDTIME [facility] Last Admin: 10/05/16 20:27 Dose: 1 drop Loperamide HCl (Imodium) 2 mg PO DAILY [facility] Last Admin: 10/05/16 08:22 Dose: 2 mg Lorazepam (Ativan) 0.25 mg IV Q6H PRN PRN Reason: Anxiety Losartan Potassium (Cozaar) 25 mg PO DAILY [facility] Last Admin: 10/05/16 08:26 Dose: 25 mg Magnesium Sulfate (Pharmacy To Dose - Magnesium Replacement) 1 dose .XX ASDIRECTED [facility] Metoprolol Tartrate (Lopressor) 5 mg IVPUSH Q4H PRN PRN Reason: Tachycardia Multivitamins (Thera) 1 each PO DAILY [facility] Last Admin: 10/05/16 08:22 Dose: 1 each Ondansetron HCl (Zofran) 4 mg IV Q6H PRN PRN Reason: Nausea/Vomiting Oxycodone HCl (Oxycodone) 5 mg PO Q12HR [facility] Last Admin: 10/05/16 20:26 Dose: 5 mg Pantoprazole Sodium (Protonix) 40 mg PO DAILY@0700 [facility] Last Admin: 10/06/16 06:16 Dose: 40 mg Ubidecarenone 100 Mg 0 each PO DAILY [facility] Last Admin: 10/05/16 08:27 Dose: Not Given Polyethylene Glycol (Miralax) 17 gm PO DAILY PRN PRN Reason: Constipation Potassium Chloride (Pharmacy To Dose - Potassium Replacement) 1 dose .XX ASDIRECTED [facility] Prednisone (Prednisone) 15 mg PO DAILY [facility] Last Admin: 10/05/16 08:22 Dose: 15 mg Saccharomyces Boulardii (Florastor) 250 mg PO DAILY [facility] Last Admin: 10/05/16 08:21 Dose: 250 mg Saxagliptin Hydrochloride (Onglyza) 5 mg PO DAILY [facility] Last Admin: 10/05/16 11:36 Dose: 5 mg Senna/Docusate Sodium (Senna Plus) 1 tab PO BID PRN PRN Reason: Constipation Sodium Chloride (Saline Flush) 10 ml FLUSH ASDIRECTED PRN PRN Reason: Keep Vein Open Last Admin: 10/04/16 12:41 Dose: 10 ml Temazepam (Restoril) 7.5 mg PO BEDTIME PRN PRN Reason: Sleep Tiotropium Bard (Spiriva Handihaler) 18 mcg INH DAILY [facility] Last Admin: 10/05/16 08:58 Dose: 1 puff Tizanidine HCl (Zanaflex) 2 mg PO Q6H PRN PRN Reason: Muscle Spasm Discontinued Medications Acetaminophen (Tylenol) 650 mg PO NOW ONE Stop: 10/04/16 13:32 Last Admin: 10/04/16 14:32 Dose: 650 mg Diazepam (Valium) 2 mg IVPUSH ONETIME ONE Stop: 10/04/16 12:16 Last Admin: 10/04/16 12:41 Dose: 2 mg Diazepam (Valium) 2 mg IVPUSH ONETIME ONE Stop: 10/04/16 13:32 Last Admin: 10/04/16 14:28 Dose: 2 mg Hydromorphone HCl (Dilaudid) 0.25 mg IVPUSH ONETIME ONE Stop: 10/04/16 15:19 Last Admin: 10/04/16 15:39 Dose: 0.25 mg Sodium Chloride (Normal Saline) 1,000 mls @ 100 mls/hr IV ONETIME ONE Stop: 10/04/16 23:14 Last Admin: 10/04/16 14:25 Dose: 100 mls/hr Ceftriaxone Sodium 1 gm/ (Sodium Chloride) 100 mls @ 200 mls/hr IV ONETIME ONE Stop: 10/04/16 16:03 Last Admin: 10/04/16 15:59 Dose: 200 mls/hr Magnesium Oxide (Magnesium Oxide) 400 mg PO ONETIME ONE Stop: 10/05/16 08:31 Last Admin: 10/05/16 08:22 Dose: 400 mg Non-Formulary Medication (Lactobacillus Acidophilus [Acidophilus]) 1 tab PO DAILY [facility] Oxycodone HCl (Oxycontin) 10 mg PO Q12HR [facility] Oxycodone HCl (Oxycontin) 5 mg PO Q12HR [facility] Potassium Chloride (Klor-Con M20) 20 meq PO ONETIME ONE Stop: 10/04/16 15:32 Last Admin: 10/04/16 15:41 Dose: 20 meq Potassium Chloride (Klor-Con M20) 40 meq PO Q4H [facility] Stop: 10/05/16 16:16 Last Admin: 10/05/16 18:05 Dose: 40 meq - Exam Quality Assessment: DVT prophylaxis General: alert, oriented, cooperative, no acute distress HEENT: Pupils equal, Pupils reactive, EOMI, Mucous membr. moist/pink Neck: supple Lungs: Clear to auscultation, Normal respiratory effort Cardiovascular: Regular Rate, Regular Rhythm Abdomen: bowel sounds present, soft, no tenderness, no distension (Female) Exam: Deferred Back Exam: Normal Inspection Extremities: edema (trace to 1+ bilat ankles/pedal- teds bilat) Peripheral Pulses: 1+: Dorsalis Pedis (L), Dorsalis Pedis (R) Neurological: no new focal deficit Psy/Mental Status: alert, normal affect, normal mood - Problem List & Annotations (1) Acute exacerbation of chronic low back pain SNOMED Code(s): 747130769 Code(s): M54.5 - LOW BACK PAIN; G89.29 - OTHER CHRONIC PAIN Status: Acute Priority: High Current Visit: Yes (2) Fall at home SNOMED Code(s): 59164283 Code(s): W19.XXXA - UNSPECIFIED FALL, INITIAL ENCOUNTER; Y92.099 - UNSP PLACE IN OTH NON-INSTITUTIONAL RESIDENCE PLACE Status: Acute Priority: High Current Visit: Yes Qualifiers: Encounter type: initial encounter Qualified Code(s): W19.XXXA - Unspecified fall, initial encounter; Y92.099 - Unspecified place in other non- institutional residence as the place of occurrence of the external cause (3) UTI (urinary tract infection) SNOMED Code(s): 83007723 Code(s): N39.0 - URINARY TRACT INFECTION, SITE NOT SPECIFIED Status: Acute Priority: High Current Visit: Yes Qualifiers: Urinary tract infection type: acute cystitis Hematuria presence: without hematuria Qualified Code(s): N30.00 - Acute cystitis without hematuria (4) DJD (degenerative joint disease) SNOMED Code(s): 584070734 Code(s): M19.90 - UNSPECIFIED OSTEOARTHRITIS, UNSPECIFIED SITE Status: Chronic Priority: Medium Current Visit: Yes Qualifiers: Osteoarthritis location: unspecified site (5) Diabetes mellitus SNOMED Code(s): 41884509 Code(s): E11.9 - TYPE 2 DIABETES MELLITUS WITHOUT COMPLICATIONS Status: Chronic Priority: Medium Current Visit: Yes Qualifiers: Diabetes mellitus type: type 2 Diabetes mellitus senior care insulin use: with senior care use (6) Hypokalemia SNOMED Code(s): 99845526 Code(s): E87.6 - HYPOKALEMIA Status: Acute Priority: High Current Visit : Yes - Problem List Review Problem List Initiated/Reviewed/Updated: Yes - My Orders Last 24 Hours: My Active Orders 10/05/16 11:49 Antiembolic Devices [RC] 10,22 ALYSON Hose [Antiembolic Hose] [OM.PC] Routine - Plan Plan:: Assessment/Plan: Acute: UTI-Uncomplicated - UA suggestive for UTI - Received IV Rocephin x1 in ED, continue - Pending Cx/Sx--preliminary with ecoli - Continue IV Abx Hyperglycemia with DM2 - She is on Steroid for skin disorder - ISS and Accu-check - A1C check --8.9 - Cont usual home meds for now Leukocytosis - WBC 13.92--improved - 2/2 Above - Monitor Acute on Chronic Pain Syndrome--pain improved - Low dose oxycodone po BID and PRN narcotic pills - Low dose zanaflex TID for muscle spasms - Will avoid lidocaine or fentanyl patch to minimize skin irritation/ hypersensitivity Back Pain Status Post Fall - Risk Factor: Diffuse Advanced DJD/OA - Imaging Studies: No acute abnormal findings - Supportive Care, PRN pain medications - PT/OT consult Hypokalemia - K 3.2 --- 2.8 - Received IV supplement in ED - Pharmacy to replete and monitor Generalized Weakness - 2/2 Above - Vit D level and TFT - PT/OT consult High Risk Osteoporosis - She has been on Prednisone for 5 years now for skin condition, followed by Dermatology and PCP - Recommend taper to come off Chronic: A-fib, HR controlled, on Eliquis--no telemetry concerns overnight HTN- controlled HF with Preserved EF (Unknown last 2D echo) Osteopenia, S/p DEXA Scan 01/24/2016 Renal Insufficiency Hx/o Bullous Penphigoid Plan: Admit to Med-Surg Routine AM Labs Resume Home Meds Dietary Consult to improve weakness PT/OT consult SW/CM for d/c planning DVT/GI prophylax Code status: DNR/DNI Recommend SNF/NH placement--plan DC to [facility] Sunday- will need 3 days of IV abx tx for AUTI, continued rehab. LOS >96 hours due to SNF placement. <Fang Franklin - Last Filed: 10/06/16 15:58> - Patient Data Vitals - most recent: Last Vital Signs Temp 36.6 C 10/06/16 15:43 Pulse 92 10/06/16 15:43 Resp 20 10/06/16 15:43 BP 120/76 10/06/16 15:43 Pulse Ox 95 10/06/16 15:43 I&O - last 24 hours: Intake & Output 10/06/16 10/06/16 10/06/16 06:59 14:59 22:59 Intake Total 425 360 Output Total 500 Balance -75 360 Lab Results last 24 hrs: Laboratory Results - last 24 hr 10/05/16 10/05/16 10/06/16 Range/Units 16:00 21:41 05:53 WBC 10.63 H (3.98-10.04) K/mm3 RBC 4.57 (3.98-5.22) M/mm3 Hgb 13.9 (11.2-15.7) gm/L Hct 43.3 (34.1-44.9) % MCV 94.7 (79.4-94.8) fl MCH 30.4 (25.6-32.2) pg MCHC 32.1 L (32.2-35.5) g/dl RDW Std Deviation 51.8 H (36.4-46.3) fL Plt Count 226 (182-369) K/mm3 MPV 10.4 (9.4-12.3) fl Neut % (Auto) 72.4 H (34.0-71.1) % Lymph % (Auto) 11.6 L (19.3-51.7) % [place] % (Auto) 10.9 (4.7-12.5) % Eos % (Auto) 0.5 L (0.7-5.8) Baso % (Auto) 0.4 (0.1-1.2) % Neut # (Auto) 7.70 H (1.56-6.13) K/mm3 Lymph # (Auto) 1.23 (1.18-3.74) K/mm3 [place] # (Auto) 1.16 H (0.24-0.36) K/mm3 Eos # (Auto) 0.05 (0.04-0.36) K/mm3 Baso # (Auto) 0.04 (0.01-0.08) K/mm3 Manual Slide Review Normal smear Sodium (136-145) mEq/L Potassium (3.5-5.1) mEq/L Chloride (98-107) mEq/L Carbon Dioxide (21-32) mEq/L Anion Gap (5-15) BUN (7-18) mg/dL Creatinine (0.55-1.02) mg/dL Est Cr Clr Drug Dosing mL/min Estimated GFR (MDRD) (>60) mL/min BUN/Creatinine Ratio (14-18) Glucose (83-115) mg/dL POC Glucose 212 H 217 H (83-110) mg/dL Calcium (8.5-10.1) mg/dL Magnesium (1.8-2.4) mg/dl 10/06/16 10/06/16 10/06/16 Range/Units 05:53 06:14 10:41 WBC (3.98-10.04) K/mm3 RBC (3.98-5.22) M/mm3 Hgb (11.2-15.7) gm/L Hct (34.1-44.9) % MCV (79.4-94.8) fl MCH (25.6-32.2) pg MCHC (32.2-35.5) g/dl RDW Std Deviation (36.4-46.3) fL Plt Count (182-369) K/mm3 MPV (9.4-12.3) fl Neut % (Auto) (34.0-71.1) % Lymph % (Auto) (19.3-51.7) % [place] % (Auto) (4.7-12.5) % Eos % (Auto) (0.7-5.8) Baso % (Auto) (0.1-1.2) % Neut # (Auto) (1.56-6.13) K/mm3 Lymph # (Auto) (1.18-3.74) K/mm3 [place] # (Auto) (0.24-0.36) K/mm3 Eos # (Auto) (0.04-0.36) K/mm3 Baso # (Auto) (0.01-0.08) K/mm3 Manual Slide Review Sodium 141 (136-145) mEq/L Potassium 4.1 (3.5-5.1) mEq/L Chloride 104 (98-107) mEq/L Carbon Dioxide 28 (21-32) mEq/L Anion Gap 13.1 (5-15) BUN 20 H (7-18) mg/dL Creatinine 1.2 H (0.55-1.02) mg/dL Est Cr Clr Drug Dosing 26.29 mL/min Estimated GFR (MDRD) 42 (>60) mL/min BUN/Creatinine Ratio 16.7 (14-18) Glucose 85 (83-115) mg/dL POC Glucose 91 160 H (83-110) mg/dL Calcium 8.7 (8.5-10.1) mg/dL Magnesium 1.9 (1.8-2.4) mg/dl Med Orders - Current: Current Medications Hydrocodone Bitart/Acetaminophen ([place] 325-5 Mg) 1 tab PO Q4H PRN PRN Reason: Pain (moderate 4-6) Albuterol/Ipratropium (Duoneb 3.0-0.5 Mg/3 Ml) 3 ml NEB Q4H PRN PRN Reason: Shortness Of Breath/wheezing Apixaban (Eliquis) 2.5 mg PO BID [facility] Last Admin: 10/06/16 08:36 Dose: 2.5 mg Atenolol (Tenormin) 100 mg PO DAILY [facility] Last Admin: 10/06/16 08:37 Dose: 100 mg Bisacodyl (Dulcolax) 5 mg PO DAILY PRN PRN Reason: Constipation Calcium Carbonate (Calcium Carbonate/Vitamin D 1500 Mg-200 Unit) 1 tab PO DAILY [facility] Last Admin: 10/06/16 08:36 Dose: 1 tab Dextrose/Water (Dextrose 50% In Water) 50 ml IVPUSH ASDIRECTED PRN PRN Reason: Hypoglycemia Diphtheria/Tetanus/Acell Pertussis (Adacel) 0.5 ml IM .ONCE ONE Stop: 10/06/16 18:26 Docusate Sodium (Colace) 100 mg PO BID PRN PRN Reason: Constipation Furosemide (Lasix) 40 mg PO DAILY [facility] Last Admin: 10/06/16 08:37 Dose: 40 mg Gabapentin (Neurontin) 100 mg PO BEDTIME [facility] Last Admin: 10/05/16 20:34 Dose: 100 mg Hydralazine HCl (Apresoline) 10 mg IVPUSH Q4H PRN PRN Reason: Hypertension Hydromorphone HCl (Dilaudid) 0.25 mg IVPUSH Q4H PRN PRN Reason: Pain (severe 7-10) Promethazine HCl 12.5 mg/ (Sodium Chloride) 50.5 mls @ 100 mls/hr IV Q6H PRN PRN Reason: Nausea/Vomiting Ceftriaxone Sodium 1 gm/ (Sodium Chloride) 100 mls @ 200 mls/hr IV Q24H [facility] Last Admin: 10/06/16 09:08 Dose: 200 mls/hr Insulin Aspart (Novolog) 0 unit SUBCUT QIDACANDBED [facility] PRN Reason: Protocol Last Admin: 10/06/16 12:56 Dose: 1 units Insulin Detemir (Levemir) 7 unit SUBCUT BEDTIME [facility] Last Admin: 10/05/16 21:42 Dose: 7 unit Insulin Detemir (Levemir) 8 unit SUBCUT DAILY [facility] Last Admin: 10/06/16 08:39 Dose: 8 units Latanoprost (Xalatan 0.005% Ophth Soln) 0 ml EYEBOTH BEDTIME [facility] Last Admin: 10/05/16 20:27 Dose: 1 drop Loperamide HCl (Imodium) 2 mg PO DAILY [facility] Last Admin: 10/06/16 08:37 Dose: 2 mg Lorazepam (Ativan) 0.25 mg IV Q6H PRN PRN Reason: Anxiety Losartan Potassium (Cozaar) 25 mg PO DAILY [facility] Last Admin: 10/06/16 08:37 Dose: 25 mg Metoprolol Tartrate (Lopressor) 5 mg IVPUSH Q4H PRN PRN Reason: Tachycardia Multivitamins (Thera) 1 each PO DAILY [facility] Last Admin: 10/06/16 08:37 Dose: 1 each Ondansetron HCl (Zofran) 4 mg IV Q6H PRN PRN Reason: Nausea/Vomiting Oxycodone HCl (Oxycodone) 5 mg PO Q12HR [facility] Last Admin: 10/06/16 08:38 Dose: 5 mg Pantoprazole Sodium (Protonix) 40 mg PO DAILY@0700 [facility] Last Admin: 10/06/16 06:16 Dose: 40 mg Ubidecarenone 100 Mg 0 each PO DAILY [facility] Last Admin: 10/06/16 08:46 Dose: Not Given Polyethylene Glycol (Miralax) 17 gm PO DAILY PRN PRN Reason: Constipation Prednisone (Prednisone) 15 mg PO DAILY [facility] Last Admin: 10/06/16 08:36 Dose: 15 mg Saccharomyces Boulardii (Florastor) 250 mg PO DAILY [facility] Last Admin: 10/06/16 08:36 Dose: 250 mg Saxagliptin Hydrochloride (Onglyza) 5 mg PO DAILY [facility] Last Admin: 10/06/16 09:08 Dose: 5 mg Senna/Docusate Sodium (Senna Plus) 1 tab PO BID PRN PRN Reason: Constipation Sodium Chloride (Saline Flush) 10 ml FLUSH ASDIRECTED PRN PRN Reason: Keep Vein Open Last Admin: 10/04/16 12:41 Dose: 10 ml Temazepam (Restoril) 7.5 mg PO BEDTIME PRN PRN Reason: Sleep Tiotropium Bard (Spiriva Handihaler) 18 mcg INH DAILY [facility] Last Admin: 10/06/16 09:23 Dose: 1 puff Tizanidine HCl (Zanaflex) 2 mg PO Q6H PRN PRN Reason: Muscle Spasm Discontinued Medications Acetaminophen (Tylenol) 650 mg PO NOW ONE Stop: 10/04/16 13:32 Last Admin: 10/04/16 14:32 Dose: 650 mg Diazepam (Valium) 2 mg IVPUSH ONETIME ONE Stop: 10/04/16 12:16 Last Admin: 10/04/16 12:41 Dose: 2 mg Diazepam (Valium) 2 mg IVPUSH ONETIME ONE Stop: 10/04/16 13:32 Last Admin: 10/04/16 14:28 Dose: 2 mg Hydromorphone HCl (Dilaudid) 0.25 mg IVPUSH ONETIME ONE Stop: 10/04/16 15:19 Last Admin: 10/04/16 15:39 Dose: 0.25 mg Sodium Chloride (Normal Saline) 1,000 mls @ 100 mls/hr IV ONETIME ONE Stop: 10/04/16 23:14 Last Admin: 10/04/16 14:25 Dose: 100 mls/hr Ceftriaxone Sodium 1 gm/ (Sodium Chloride) 100 mls @ 200 mls/hr IV ONETIME ONE Stop: 10/04/16 16:03 Last Admin: 10/04/16 15:59 Dose: 200 mls/hr Sodium Chloride (Normal Saline) Confirm Administered Dose 100 mls @ as directed .ROUTE .STK-MED ONE Stop: 10/06/16 09:05 Last Admin: 10/06/16 09:12 Dose: 1 ml Magnesium Oxide (Magnesium Oxide) 400 mg PO ONETIME ONE Stop: 10/05/16 08:31 Last Admin: 10/05/16 08:22 Dose: 400 mg Magnesium Sulfate (Pharmacy To Dose - Magnesium Replacement) 1 dose .XX ASDIRECTED [facility] Non-Formulary Medication (Lactobacillus Acidophilus [Acidophilus]) 1 tab PO DAILY [facility] Oxycodone HCl (Oxycontin) 10 mg PO Q12HR [facility] Oxycodone HCl (Oxycontin) 5 mg PO Q12HR [facility] Potassium Chloride (Klor-Con M20) 20 meq PO ONETIME ONE Stop: 10/04/16 15:32 Last Admin: 10/04/16 15:41 Dose: 20 meq Potassium Chloride (Pharmacy To Dose - Potassium Replacement) 1 dose .XX ASDIRECTED [facility] Potassium Chloride (Klor-Con M20) 40 meq PO Q4H [facility] Stop: 10/05/16 16:16 Last Admin: 10/05/16 18:05 Dose: 40 meq - Plan Plan:: DC on Sunday, 96 hour stay for SNF placement.
[2016-10-06] MEDS: Apixaban 5 MG Tab PO SCH ×2 (08:36→21:30)
[2016-10-06] MEDS: Calcium Carbonate/Vitamin D3 1500 MG-200 Units Tab PO SCH (08:36)
[2016-10-06] MEDS: predniSONE 5 MG Tab PO SCH (08:36)
[2016-10-06] MEDS: Saccharomyces Boulardii (Probiotic) 250 MG Cap PO SCH (08:36)
[2016-10-06] MEDS: Atenolol 50 MG Tab PO SCH (08:37)
[2016-10-06] MEDS: Loperamide 2 MG Cap PO SCH (08:37)
[2016-10-06] MEDS: Multivitamins,Therapeutic Tab PO SCH (08:37)
[2016-10-06] MEDS: Losartan 25 MG Tab PO SCH (08:37)
[2016-10-06] MEDS: Furosemide 40 MG Tab PO SCH (08:37)
[2016-10-06] MEDS: oxyCODONE 5 MG Tab PO SCH ×2 (08:38→21:31)
[2016-10-06] MEDS: Insulin Detemir 100 Units/ML 3 ML Pen SUBCUT SCH ×2 (08:39→21:33)
[2016-10-06] MEDS ORDERED: Sodium Chloride 0.9% 100 ML ONE (09:04)
[2016-10-06] MEDS: Saxagliptin 5 MG Tab PO SCH (09:08)
[2016-10-06] MEDS: cefTRIAXone 1 GM in Sodium Chloride 0.9% 100 ML IV SCH (09:08)
[2016-10-06] MEDS: Tiotropium Inhaler 18 MCG Inhalation Powder Cap Kit of 5 INH SCH (09:23)
[2016-10-06] MEDS ORDERED: Diphtheria,Pertussis(Acell),Tetanus Vaccine 0.5 ML SDV IM ONE (18:25)
[2016-10-06] MEDS: Gabapentin 100 MG Cap PO SCH (21:30)
[2016-10-06] MEDS: Latanoprost 0.005% Ophth Soln 2.5 ML Bottle EYEBOTH SCH (21:30)
[2016-10-07] MEDS: Pantoprazole 40 MG Tab.CR PO SCH (07:03)
[2016-10-07] MEDS: Insulin Aspart 100 Units/ML 3 ML Pen SUBCUT SCH ×5 (08:03→21:36)
[2016-10-07] MEDS: Calcium Carbonate/Vitamin D3 1500 MG-200 Units Tab PO SCH (08:11)
[2016-10-07] MEDS: Losartan 25 MG Tab PO SCH (08:12)
[2016-10-07] MEDS: Apixaban 5 MG Tab PO SCH ×2 (08:12→20:34)
[2016-10-07] MEDS: Furosemide 40 MG Tab PO SCH (08:13)
[2016-10-07] MEDS: Saccharomyces Boulardii (Probiotic) 250 MG Cap PO SCH (08:13)
[2016-10-07] MEDS: Insulin Detemir 100 Units/ML 3 ML Pen SUBCUT SCH ×2 (08:14→20:36)
[2016-10-07] MEDS: Saxagliptin 5 MG Tab PO SCH (08:15)
[2016-10-07] MEDS: oxyCODONE 5 MG Tab PO SCH (08:15)
[2016-10-07] MEDS: predniSONE 5 MG Tab PO SCH (08:15)
[2016-10-07] MEDS: Atenolol 50 MG Tab PO SCH (08:16)
[2016-10-07] MEDS: Multivitamins,Therapeutic Tab PO SCH (08:16)
[2016-10-07] MEDS: cefTRIAXone 1 GM in Sodium Chloride 0.9% 100 ML IV SCH (08:16)
[2016-10-07] MEDS: Loperamide 2 MG Cap PO SCH (08:18)
[2016-10-07] MEDS: Tiotropium Inhaler 18 MCG Inhalation Powder Cap Kit of 5 INH SCH (09:00)
--- NOTE | 2016-10-07 11:52 | PCM.PN ---
- General Info Date of Service: 10/07/16 Functional Status: Reports: tolerating diet, urinating - Review of Systems General: Reports: Weakness, Fatigue HEENT: Reports: no symptoms Pulmonary: Reports: no symptoms Cardiovascular: Reports: No Symptoms Gastrointestinal: Reports: No symptoms Genitourinary: Reports: no symptoms Musculoskeletal: Reports: no symptoms Skin: Reports: no symptoms Neurological: Reports: No Symptoms Psychiatric: Reports: no symptoms - Patient Data Vitals - most recent: Last Vital Signs Temp 36.3 C 10/07/16 03:24 Pulse 76 10/07/16 08:16 Resp 16 10/07/16 03:24 BP 133/60 10/07/16 08:16 Pulse Ox 98 10/07/16 09:00 Weight - most recent: 72.983 kg I&O - last 24 hours: Intake & Output 10/06/16 10/07/16 10/07/16 22:59 06:59 14:59 Intake Total 1400 350 Output Total 1800 650 Balance -400 -300 Lab Results last 24 hrs: Laboratory Results - last 24 hr 10/06/16 10/06/16 10/07/16 Range/Units 17:04 21:10 07:05 POC Glucose 345 H 241 H 155 H (83-110) mg/dL 10/07/16 Range/Units 11:32 POC Glucose 193 H (83-110) mg/dL Med Orders - Current: Current Medications Hydrocodone Bitart/Acetaminophen (F[place]ile 325-5 Mg) 1 tab PO Q4H PRN PRN Reason: Pain (moderate 4-6) Albuterol/Ipratropium (Duoneb 3.0-0.5 Mg/3 Ml) 3 ml NEB Q4H PRN PRN Reason: Shortness Of Breath/wheezing Apixaban (Eliquis) 2.5 mg PO BID [facility] Last Admin: 10/07/16 08:12 Dose: 2.5 mg Atenolol (Tenormin) 100 mg PO DAILY [facility] Last Admin: 10/07/16 08:16 Dose: 100 mg Bisacodyl (Dulcolax) 5 mg PO DAILY PRN PRN Reason: Constipation Calcium Carbonate (Calcium Carbonate/Vitamin D 1500 Mg-200 Unit) 1 tab PO DAILY [facility] Last Admin: 10/07/16 08:11 Dose: 1 tab Dextrose/Water (Dextrose 50% In Water) 50 ml IVPUSH ASDIRECTED PRN PRN Reason: Hypoglycemia Docusate Sodium (Colace) 100 mg PO BID PRN PRN Reason: Constipation Furosemide (Lasix) 40 mg PO DAILY [facility] Last Admin: 10/07/16 08:13 Dose: 40 mg Gabapentin (Neurontin) 100 mg PO BEDTIME [facility] Last Admin: 10/06/16 21:30 Dose: 100 mg Hydralazine HCl (Apresoline) 10 mg IVPUSH Q4H PRN PRN Reason: Hypertension Hydromorphone HCl (Dilaudid) 0.25 mg IVPUSH Q4H PRN PRN Reason: Pain (severe 7-10) Promethazine HCl 12.5 mg/ (Sodium Chloride) 50.5 mls @ 100 mls/hr IV Q6H PRN PRN Reason: Nausea/Vomiting Ceftriaxone Sodium 1 gm/ (Sodium Chloride) 100 mls @ 200 mls/hr IV Q24H [facility] Last Admin: 10/07/16 08:16 Dose: 200 mls/hr Insulin Aspart (Novolog) 0 unit SUBCUT QIDACANDBED [facility] PRN Reason: Protocol Last Admin: 10/07/16 08:03 Dose: 1 units Insulin Detemir (Levemir) 7 unit SUBCUT BEDTIME [facility] Last Admin: 10/06/16 21:33 Dose: 7 unit Insulin Detemir (Levemir) 8 unit SUBCUT DAILY [facility] Last Admin: 10/07/16 08:14 Dose: 8 units Latanoprost (Xalatan 0.005% Ophth Soln) 0 ml EYEBOTH BEDTIME [facility] Last Admin: 10/06/16 21:30 Dose: 1 drop Loperamide HCl (Imodium) 2 mg PO DAILY [facility] Last Admin: 10/07/16 08:18 Dose: Not Given Lorazepam (Ativan) 0.25 mg IV Q6H PRN PRN Reason: Anxiety Losartan Potassium (Cozaar) 25 mg PO DAILY [facility] Last Admin: 10/07/16 08:12 Dose: 25 mg Metoprolol Tartrate (Lopressor) 5 mg IVPUSH Q4H PRN PRN Reason: Tachycardia Multivitamins (Thera) 1 each PO DAILY [facility] Last Admin: 10/07/16 08:16 Dose: 1 each Ondansetron HCl (Zofran) 4 mg IV Q6H PRN PRN Reason: Nausea/Vomiting Oxycodone HCl (Oxycodone) 5 mg PO Q12HR [facility] Last Admin: 10/07/16 08:15 Dose: 5 mg Pantoprazole Sodium (Protonix) 40 mg PO DAILY@0700 [facility] Last Admin: 10/07/16 07:03 Dose: 40 mg Ubidecarenone 100 Mg 0 each PO DAILY [facility] Last Admin: 10/07/16 08:17 Dose: Not Given Polyethylene Glycol (Miralax) 17 gm PO DAILY PRN PRN Reason: Constipation Prednisone (Prednisone) 15 mg PO DAILY [facility] Last Admin: 10/07/16 08:15 Dose: 15 mg Saccharomyces Boulardii (Florastor) 250 mg PO DAILY [facility] Last Admin: 10/07/16 08:13 Dose: 250 mg Saxagliptin Hydrochloride (Onglyza) 5 mg PO DAILY [facility] Last Admin: 10/07/16 08:15 Dose: 5 mg Senna/Docusate Sodium (Senna Plus) 1 tab PO BID PRN PRN Reason: Constipation Sodium Chloride (Saline Flush) 10 ml FLUSH ASDIRECTED PRN PRN Reason: Keep Vein Open Last Admin: 10/04/16 12:41 Dose: 10 ml Temazepam (Restoril) 7.5 mg PO BEDTIME PRN PRN Reason: Sleep Tiotropium Vaughn (Spiriva Handihaler) 18 mcg INH DAILY [facility] Last Admin: 10/07/16 09:00 Dose: 1 puff Tizanidine HCl (Zanaflex) 2 mg PO Q6H PRN PRN Reason: Muscle Spasm Discontinued Medications Acetaminophen (Tylenol) 650 mg PO NOW ONE Stop: 10/04/16 13:32 Last Admin: 10/04/16 14:32 Dose: 650 mg Diazepam (Valium) 2 mg IVPUSH ONETIME ONE Stop: 10/04/16 12:16 Last Admin: 10/04/16 12:41 Dose: 2 mg Diazepam (Valium) 2 mg IVPUSH ONETIME ONE Stop: 10/04/16 13:32 Last Admin: 10/04/16 14:28 Dose: 2 mg Diphtheria/Tetanus/Acell Pertussis (Adacel) 0.5 ml IM .ONCE ONE Stop: 10/06/16 18:26 Hydromorphone HCl (Dilaudid) 0.25 mg IVPUSH ONETIME ONE Stop: 10/04/16 15:19 Last Admin: 10/04/16 15:39 Dose: 0.25 mg Sodium Chloride (Normal Saline) 1,000 mls @ 100 mls/hr IV ONETIME ONE Stop: 10/04/16 23:14 Last Admin: 10/04/16 14:25 Dose: 100 mls/hr Ceftriaxone Sodium 1 gm/ (Sodium Chloride) 100 mls @ 200 mls/hr IV ONETIME ONE Stop: 10/04/16 16:03 Last Admin: 10/04/16 15:59 Dose: 200 mls/hr Sodium Chloride (Normal Saline) Confirm Administered Dose 100 mls @ as directed .ROUTE .STK-MED ONE Stop: 10/06/16 09:05 Last Admin: 10/06/16 09:12 Dose: 1 ml Magnesium Oxide (Magnesium Oxide) 400 mg PO ONETIME ONE Stop: 10/05/16 08:31 Last Admin: 10/05/16 08:22 Dose: 400 mg Magnesium Sulfate (Pharmacy To Dose - Magnesium Replacement) 1 dose .XX ASDIRECTED [facility] Non-Formulary Medication (Lactobacillus Acidophilus [Acidophilus]) 1 tab PO DAILY [facility] Oxycodone HCl (Oxycontin) 10 mg PO Q12HR GURVINDER Oxycodone HCl (Oxycontin) 5 mg PO Q12HR [facility] Potassium Chloride (Klor-Con M20) 20 meq PO ONETIME ONE Stop: 10/04/16 15:32 Last Admin: 10/04/16 15:41 Dose: 20 meq Potassium Chloride (Pharmacy To Dose - Potassium Replacement) 1 dose .XX ASDIRECTED [facility] Potassium Chloride (Klor-Con M20) 40 meq PO Q4H [facility] Stop: 10/05/16 16:16 Last Admin: 10/05/16 18:05 Dose: 40 meq - Exam Quality Assessment: DVT prophylaxis General: alert, oriented, no acute distress HEENT: Pupils equal, Pupils reactive, EOMI Neck: supple, trachea midline Lungs: Normal respiratory effort Cardiovascular: Regular Rate Abdomen: bowel sounds present, soft, no tenderness, no distension (Female) Exam: Deferred Back Exam: Normal Inspection Extremities: normal pulses Skin: warm Neurological: no new focal deficit Psy/Mental Status: alert - Problem List & Annotations (1) Acute exacerbation of chronic low back pain SNOMED Code(s): 834081066 Code(s): M54.5 - LOW BACK PAIN; G89.29 - OTHER CHRONIC PAIN Status: Acute Priority: High Current Visit: Yes (2) Fall at home SNOMED Code(s): 52193698 Code(s): W19.XXXA - UNSPECIFIED FALL, INITIAL ENCOUNTER; Y92.099 - UNSP PLACE IN OTH NON-INSTITUTIONAL RESIDENCE PLACE Status: Acute Priority: High Current Visit: Yes Qualifiers: Encounter type: initial encounter Qualified Code(s): W19.XXXA - Unspecified fall, initial encounter; Y92.099 - Unspecified place in other non- institutional residence as the place of occurrence of the external cause (3) Hypokalemia SNOMED Code(s): 50703428 Code(s): E87.6 - HYPOKALEMIA Status: Acute Priority: High Current Visit : Yes (4) UTI (urinary tract infection) SNOMED Code(s): 09190872 Code(s): N39.0 - URINARY TRACT INFECTION, SITE NOT SPECIFIED Status: Acute Priority: High Current Visit: Yes Qualifiers: Urinary tract infection type: acute cystitis Hematuria presence: without hematuria Qualified Code(s): N30.00 - Acute cystitis without hematuria (5) DJD (degenerative joint disease) SNOMED Code(s): 511288490 Code(s): M19.90 - UNSPECIFIED OSTEOARTHRITIS, UNSPECIFIED SITE Status: Chronic Priority: Medium Current Visit: Yes Qualifiers: Osteoarthritis location: unspecified site (6) Diabetes mellitus SNOMED Code(s): 77486271 Code(s): E11.9 - TYPE 2 DIABETES MELLITUS WITHOUT COMPLICATIONS Status: Chronic Priority: Medium Current Visit: Yes Qualifiers: Diabetes mellitus type: type 2 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 - Problem List Review Problem List Initiated/Reviewed/Updated: Yes - My Orders Last 24 Hours: My Active Orders 10/08/16 05:00 BASIC METABOLIC PANEL,BMP [CHEM] DAILY CBC WITH AUTO DIFF [HEME] DAILY MAGNESIUM [CHEM] DAILY 10/09/16 05:00 BASIC METABOLIC PANEL,BMP [CHEM] DAILY CBC WITH AUTO DIFF [HEME] DAILY MAGNESIUM [CHEM] DAILY 10/10/16 05:00 BASIC METABOLIC PANEL,BMP [CHEM] DAILY CBC WITH AUTO DIFF [HEME] DAILY MAGNESIUM [CHEM] DAILY 10/11/16 05:00 BASIC METABOLIC PANEL,BMP [CHEM] DAILY CBC WITH AUTO DIFF [HEME] DAILY MAGNESIUM [CHEM] DAILY - Plan Plan:: Impression: AUTI, uncomplicated on Rocephin DM with hyperglycemia Acute on chronic pain S/P Fall with backpain Gen weakness Hypokalemia Chronic AFib on Eliquis HTN HFPEF CKD Plan Cont ATB Daily Labs Home meds PT/OT/SW, anticipate [place] DC on 10/09/16 DVT/GI prophylaxis LOS>96 hours for Tx and placement
[2016-10-07] MEDS ORDERED: Magnesium Sulfate/Water 2 GM in Premix Bag 1 BAG IV ONE (13:30)
--- NOTE | 2016-10-07 14:47 | CT ---
Head CT Technique: Multiple axial sections through the brain were obtained. Intravenous contrast was not utilized. Comparison: Prior head CT exam of 10/04/16 is available. Findings: Ventricles along with basal cisterns and sulci over the convexities are moderately prominent. Diminished density is noted within the periventricular and subcortical white matter compatible with small vessel ischemic demyelination change. Several old lacunar infarcts are noted within the basal ganglia. No other abnormal parenchymal densities are seen. No evidence of intracranial hemorrhage. No midline shift or mass effect is seen. Bone window settings were reviewed which shows minimal mucosal thickening within the ethmoid sinuses. No acute calvarial abnormality is appreciated. Atherosclerotic calcification is seen within the carotid siphon and within the vertebral vessels. Impression: 1. Senescent change which is stable from prior exam. 2. Incidental sinus finding. 3. No acute intracranial abnormality is seen. Diagnostic code #9
--- NOTE | 2016-10-07 14:50 | CR ---
Left knee: AP, lateral and sunrise patellar views were obtained. Comparison: No previous left knee exam. Knee prosthesis is seen. Components are aligned. Underlying bony structures are intact. No fracture or other bony abnormality is seen. Vascular calcification is present. Calcification is noted inferior to the patella which appears to be old. Impression: 1. Findings as described above. Nothing acute is appreciated on 3 view left knee exam. Diagnostic code #2
--- NOTE | 2016-10-07 14:50 | CR ---
Right elbow: 2 views of the right elbow were obtained. Comparison: No previous elbow study. No fracture is seen. No dislocation is noted. Mild osteopenia is present. Impression: 1. No acute bony abnormality is seen on 2 view right elbow study. Diagnostic code #2
--- NOTE | 2016-10-07 14:54 | CT ---
CT cervical spine Technique: Multiple axial sections were obtained from above C1 inferiorly through the bottom of T1. Reconstructed sagittal and coronal images were reviewed. Comparison: No previous cervical spine imaging. Findings: Diffuse degenerative apophyseal change is seen. This degenerative apophyseal change causes mild spondylolisthesis at C3-C4. Mild disc space narrowing is noted at C3-C4. Severe degenerative disc space narrowing is noted at C4-C5, C5-C6 and C6-C7. Posterior osteophytes are seen at C4-C5 through C6-C7. Anterior osteophytes are noted at C3-C4 through C6-C7. Moderate to severe disc space narrowing is also noted at C7-T1 with slight spondylolisthesis also due to degenerative apophyseal change. Mastoid sinuses and middle ear cavities are clear. Posterior skull base is intact. Vertebral bodies and posterior arches are intact with no fracture being seen. Mild right sided neural foraminal stenosis is noted at C6-C7. Moderate left-sided neural foraminal stenosis is noted at C6-C7. Moderate to severe bilateral neural foraminal stenosis noted at C5-C6. Mild left-sided neural foraminal stenosis noted at C4-C5. Mild to moderate right-sided neural foraminal stenosis noted at C3-C4. Posterior spurring at C5-C6 C6-C7 slightly indents the anterior thecal sac. Very mild central canal stenosis due to the spurring seen at C5-C6. Impression: 1. Diffuse degenerative change as described above. No acute abnormality is appreciated on CT study of the cervical spine. Diagnostic code #2
[2016-10-07] MEDS: Acetaminophen 325 MG Tab PO PRN ×2 (17:10→21:04)
[2016-10-07] MEDS: Gabapentin 100 MG Cap PO SCH (20:34)
[2016-10-07] MEDS: Latanoprost 0.005% Ophth Soln 2.5 ML Bottle EYEBOTH SCH (20:34)
[2016-10-08] MEDS: Pantoprazole 40 MG Tab.CR PO SCH (07:08)
[2016-10-08] MEDS: Insulin Aspart 100 Units/ML 3 ML Pen SUBCUT SCH ×5 (07:23→22:10)
[2016-10-08] MEDS: Saccharomyces Boulardii (Probiotic) 250 MG Cap PO SCH (09:21)
[2016-10-08] MEDS: cefTRIAXone 1 GM in Sodium Chloride 0.9% 100 ML IV SCH (09:23)
[2016-10-08] MEDS: Losartan 25 MG Tab PO SCH (09:25)
[2016-10-08] MEDS: Atenolol 50 MG Tab PO SCH (09:25)
[2016-10-08] MEDS: Furosemide 40 MG Tab PO SCH (09:26)
[2016-10-08] MEDS: Apixaban 5 MG Tab PO SCH ×2 (09:26→20:26)
[2016-10-08] MEDS: predniSONE 5 MG Tab PO SCH (09:26)
[2016-10-08] MEDS: Multivitamins,Therapeutic Tab PO SCH (09:27)
[2016-10-08] MEDS: Calcium Carbonate/Vitamin D3 1500 MG-200 Units Tab PO SCH (09:27)
[2016-10-08] MEDS: Loperamide 2 MG Cap PO SCH (09:27)
[2016-10-08] MEDS: Saxagliptin 5 MG Tab PO SCH (09:27)
[2016-10-08] MEDS: Insulin Detemir 100 Units/ML 3 ML Pen SUBCUT SCH ×2 (09:29→20:28)
[2016-10-08] MEDS ORDERED: Potassium Chloride 10% 20 MEQ/15 ML Soln 15 ML UD Cup PO ONE (09:47)
[2016-10-08] MEDS: Tiotropium Inhaler 18 MCG Inhalation Powder Cap Kit of 5 INH SCH (09:51)
[2016-10-08] MEDS ORDERED: cefTRIAXone 1 GM in Sodium Chloride 0.9% 100 ML IV ONE (10:45)
--- NOTE | 2016-10-08 11:33 | PCM.PN ---
- General Info Date of Service: 10/08/16 Functional Status: Reports: pain controlled (Tylenol is effective), tolerating diet, ambulating, urinating - Review of Systems General: Reports: Weakness (decreased) HEENT: Reports: no symptoms Pulmonary: Reports: no symptoms Cardiovascular: Reports: No Symptoms Gastrointestinal: Reports: No symptoms Genitourinary: Reports: no symptoms Musculoskeletal: Reports: arm pain (right elbow) Skin: Reports: no symptoms Neurological: Reports: No Symptoms Psychiatric: Reports: no symptoms - Patient Data Vitals - most recent: Last Vital Signs Temp 36.9 C 10/08/16 07:25 Pulse 74 10/08/16 09:25 Resp 20 10/08/16 07:25 BP 120/85 10/08/16 09:25 Pulse Ox 95 10/08/16 09:52 Weight - most recent: 71.894 kg I&O - last 24 hours: Intake & Output 10/07/16 10/08/16 10/08/16 22:59 06:59 14:59 Intake Total 650 450 180 Output Total 1200 900 Balance -550 -450 180 Lab Results last 24 hrs: Laboratory Results - last 24 hr 10/07/16 10/07/16 10/07/16 Range/Units 11:32 17:15 18:03 WBC (3.98-10.04) K/mm3 RBC (3.98-5.22) M/mm3 Hgb (11.2-15.7) gm/L Hct (34.1-44.9) % MCV (79.4-94.8) fl MCH (25.6-32.2) pg MCHC (32.2-35.5) g/dl RDW Std Deviation (36.4-46.3) fL Plt Count (182-369) K/mm3 MPV (9.4-12.3) fl Neut % (Auto) (34.0-71.1) % Lymph % (Auto) (19.3-51.7) % Mathews % (Auto) (4.7-12.5) % Eos % (Auto) (0.7-5.8) Baso % (Auto) (0.1-1.2) % Neut # (Auto) (1.56-6.13) K/mm3 Lymph # (Auto) (1.18-3.74) K/mm3 Mathews # (Auto) (0.24-0.36) K/mm3 Eos # (Auto) (0.04-0.36) K/mm3 Baso # (Auto) (0.01-0.08) K/mm3 Manual Slide Review Sodium (136-145) mEq/L Potassium (3.5-5.1) mEq/L Chloride (98-107) mEq/L Carbon Dioxide (21-32) mEq/L Anion Gap (5-15) BUN (7-18) mg/dL Creatinine (0.55-1.02) mg/dL Est Cr Clr Drug Dosing mL/min Estimated GFR (MDRD) (>60) mL/min BUN/Creatinine Ratio (14-18) Glucose (83-115) mg/dL POC Glucose 193 H 287 H 303 H (83-110) mg/dL Calcium (8.5-10.1) mg/dL Magnesium (1.8-2.4) mg/dl 10/07/16 10/08/16 10/08/16 Range/Units 20:33 06:18 06:35 WBC 10.49 H (3.98-10.04) K/mm3 RBC 4.61 (3.98-5.22) M/mm3 Hgb 14.0 (11.2-15.7) gm/L Hct 42.7 (34.1-44.9) % MCV 92.6 (79.4-94.8) fl MCH 30.4 (25.6-32.2) pg MCHC 32.8 (32.2-35.5) g/dl RDW Std Deviation 50.6 H (36.4-46.3) fL Plt Count 187 (182-369) K/mm3 MPV 10.7 (9.4-12.3) fl Neut % (Auto) 73.2 H (34.0-71.1) % Lymph % (Auto) 11.2 L (19.3-51.7) % Mathews % (Auto) 9.5 (4.7-12.5) % Eos % (Auto) 1.0 (0.7-5.8) Baso % (Auto) 0.4 (0.1-1.2) % Neut # (Auto) 7.68 H (1.56-6.13) K/mm3 Lymph # (Auto) 1.18 (1.18-3.74) K/mm3 Mathews # (Auto) 1.00 H (0.24-0.36) K/mm3 Eos # (Auto) 0.10 (0.04-0.36) K/mm3 Baso # (Auto) 0.04 (0.01-0.08) K/mm3 Manual Slide Review Normal smear Sodium (136-145) mEq/L Potassium (3.5-5.1) mEq/L Chloride (98-107) mEq/L Carbon Dioxide (21-32) mEq/L Anion Gap (5-15) BUN (7-18) mg/dL Creatinine (0.55-1.02) mg/dL Est Cr Clr Drug Dosing mL/min Estimated GFR (MDRD) (>60) mL/min BUN/Creatinine Ratio (14-18) Glucose (83-115) mg/dL POC Glucose 276 H 149 H (83-110) mg/dL Calcium (8.5-10.1) mg/dL Magnesium (1.8-2.4) mg/dl 10/08/16 10/08/16 Range/Units 06:35 10:25 WBC (3.98-10.04) K/mm3 RBC (3.98-5.22) M/mm3 Hgb (11.2-15.7) gm/L Hct (34.1-44.9) % MCV (79.4-94.8) fl MCH (25.6-32.2) pg MCHC (32.2-35.5) g/dl RDW Std Deviation (36.4-46.3) fL Plt Count (182-369) K/mm3 MPV (9.4-12.3) fl Neut % (Auto) (34.0-71.1) % Lymph % (Auto) (19.3-51.7) % Mathews % (Auto) (4.7-12.5) % Eos % (Auto) (0.7-5.8) Baso % (Auto) (0.1-1.2) % Neut # (Auto) (1.56-6.13) K/mm3 Lymph # (Auto) (1.18-3.74) K/mm3 Mathews # (Auto) (0.24-0.36) K/mm3 Eos # (Auto) (0.04-0.36) K/mm3 Baso # (Auto) (0.01-0.08) K/mm3 Manual Slide Review Sodium 137 (136-145) mEq/L Potassium 3.4 L (3.5-5.1) mEq/L Chloride 99 (98-107) mEq/L Carbon Dioxide 27 (21-32) mEq/L Anion Gap 14.4 (5-15) BUN 34 H (7-18) mg/dL Creatinine 1.2 H (0.55-1.02) mg/dL Est Cr Clr Drug Dosing 26.29 mL/min Estimated GFR (MDRD) 42 (>60) mL/min BUN/Creatinine Ratio 28.3 H (14-18) Glucose 138 H (83-115) mg/dL POC Glucose 251 H (83-110) mg/dL Calcium 8.6 (8.5-10.1) mg/dL Magnesium 2.3 (1.8-2.4) mg/dl Med Orders - Current: Current Medications Acetaminophen (Tylenol) 650 mg PO Q4H PRN PRN Reason: Pain Last Admin: 10/07/16 21:04 Dose: 650 mg Hydrocodone Bitart/Acetaminophen ([place] 325-5 Mg) 1 tab PO Q4H PRN PRN Reason: Pain (moderate 4-6) Albuterol/Ipratropium (Duoneb 3.0-0.5 Mg/3 Ml) 3 ml NEB Q4H PRN PRN Reason: Shortness Of Breath/wheezing Apixaban (Eliquis) 2.5 mg PO BID [facility] Last Admin: 10/08/16 09:26 Dose: 2.5 mg Atenolol (Tenormin) 100 mg PO DAILY [facility] Last Admin: 10/08/16 09:25 Dose: 100 mg Bisacodyl (Dulcolax) 5 mg PO DAILY PRN PRN Reason: Constipation Calcium Carbonate (Calcium Carbonate/Vitamin D 1500 Mg-200 Unit) 1 tab PO DAILY [facility] Last Admin: 10/08/16 09:27 Dose: 1 tab Dextrose/Water (Dextrose 50% In Water) 50 ml IVPUSH ASDIRECTED PRN PRN Reason: Hypoglycemia Docusate Sodium (Colace) 100 mg PO BID PRN PRN Reason: Constipation Furosemide (Lasix) 40 mg PO DAILY [facility] Last Admin: 10/08/16 09:26 Dose: 40 mg Gabapentin (Neurontin) 100 mg PO BEDTIME [facility] Last Admin: 10/07/16 20:34 Dose: 100 mg Hydralazine HCl (Apresoline) 10 mg IVPUSH Q4H PRN PRN Reason: Hypertension Hydromorphone HCl (Dilaudid) 0.25 mg IVPUSH Q4H PRN PRN Reason: Pain (severe 7-10) Promethazine HCl 12.5 mg/ (Sodium Chloride) 50.5 mls @ 100 mls/hr IV Q6H PRN PRN Reason: Nausea/Vomiting Ceftriaxone Sodium 2 gm/ (Sodium Chloride) 100 mls @ 200 mls/hr IV Q24H [facility] Insulin Aspart (Novolog) 0 unit SUBCUT QIDACANDBED [facility] PRN Reason: Protocol Last Admin: 10/08/16 07:23 Dose: Not Given Insulin Detemir (Levemir) 7 unit SUBCUT BEDTIME [facility] Last Admin: 10/07/16 20:36 Dose: 7 unit Insulin Detemir (Levemir) 8 unit SUBCUT DAILY [facility] Last Admin: 10/08/16 09:29 Dose: 8 units Latanoprost (Xalatan 0.005% Ophth Soln) 0 ml EYEBOTH BEDTIME [facility] Last Admin: 10/07/16 20:34 Dose: 1 drop Loperamide HCl (Imodium) 2 mg PO DAILY [facility] Last Admin: 10/08/16 09:27 Dose: Not Given Lorazepam (Ativan) 0.25 mg IV Q6H PRN PRN Reason: Anxiety Losartan Potassium (Cozaar) 25 mg PO DAILY [facility] Last Admin: 10/08/16 09:25 Dose: 25 mg Metoprolol Tartrate (Lopressor) 5 mg IVPUSH Q4H PRN PRN Reason: Tachycardia Multivitamins (Thera) 1 each PO DAILY [facility] Last Admin: 10/08/16 09:27 Dose: 1 each Ondansetron HCl (Zofran) 4 mg IV Q6H PRN PRN Reason: Nausea/Vomiting Pantoprazole Sodium (Protonix) 40 mg PO DAILY@0700 [facility] Last Admin: 10/08/16 07:08 Dose: 40 mg Ubidecarenone 100 Mg 0 each PO DAILY [facility] Last Admin: 10/08/16 09:31 Dose: Not Given Polyethylene Glycol (Miralax) 17 gm PO DAILY PRN PRN Reason: Constipation Prednisone (Prednisone) 15 mg PO DAILY [facility] Last Admin: 10/08/16 09:26 Dose: 15 mg Saccharomyces Boulardii (Florastor) 250 mg PO DAILY [facility] Last Admin: 10/08/16 09:21 Dose: 250 mg Saxagliptin Hydrochloride (Onglyza) 5 mg PO DAILY [facility] Last Admin: 10/08/16 09:27 Dose: 5 mg Senna/Docusate Sodium (Senna Plus) 1 tab PO BID PRN PRN Reason: Constipation Sodium Chloride (Saline Flush) 10 ml FLUSH ASDIRECTED PRN PRN Reason: Keep Vein Open Last Admin: 10/04/16 12:41 Dose: 10 ml Temazepam (Restoril) 7.5 mg PO BEDTIME PRN PRN Reason: Sleep Tiotropium Jeannette (Spiriva Handihaler) 18 mcg INH DAILY [facility] Last Admin: 10/08/16 09:51 Dose: 1 puff Tizanidine HCl (Zanaflex) 2 mg PO Q6H PRN PRN Reason: Muscle Spasm Discontinued Medications Acetaminophen (Tylenol) 650 mg PO NOW ONE Stop: 10/04/16 13:32 Last Admin: 10/04/16 14:32 Dose: 650 mg Diazepam (Valium) 2 mg IVPUSH ONETIME ONE Stop: 10/04/16 12:16 Last Admin: 10/04/16 12:41 Dose: 2 mg Diazepam (Valium) 2 mg IVPUSH ONETIME ONE Stop: 10/04/16 13:32 Last Admin: 10/04/16 14:28 Dose: 2 mg Diphtheria/Tetanus/Acell Pertussis (Adacel) 0.5 ml IM .ONCE ONE Stop: 10/06/16 18:26 Hydromorphone HCl (Dilaudid) 0.25 mg IVPUSH ONETIME ONE Stop: 10/04/16 15:19 Last Admin: 10/04/16 15:39 Dose: 0.25 mg Sodium Chloride (Normal Saline) 1,000 mls @ 100 mls/hr IV ONETIME ONE Stop: 10/04/16 23:14 Last Admin: 10/04/16 14:25 Dose: 100 mls/hr Ceftriaxone Sodium 1 gm/ (Sodium Chloride) 100 mls @ 200 mls/hr IV ONETIME ONE Stop: 10/04/16 16:03 Last Admin: 10/04/16 15:59 Dose: 200 mls/hr Ceftriaxone Sodium 1 gm/ (Sodium Chloride) 100 mls @ 200 mls/hr IV Q24H [facility] Last Admin: 10/08/16 09:23 Dose: 200 mls/hr Sodium Chloride (Normal Saline) Confirm Administered Dose 100 mls @ as directed .ROUTE .STK-MED ONE Stop: 10/06/16 09:05 Last Admin: 10/06/16 09:12 Dose: 1 ml Magnesium Sulfate 2 gm/ Premix 50 mls @ 25 mls/hr IV ONETIME ONE Stop: 10/07/16 15:29 Last Admin: 10/07/16 15:36 Dose: 25 mls/hr Ceftriaxone Sodium 2 gm/ (Sodium Chloride) 100 mls @ 200 mls/hr IV Q24H [facility] Ceftriaxone Sodium 1 gm/ (Sodium Chloride) 100 mls @ 200 mls/hr IV ONETIME ONE Stop: 10/08/16 11:14 Last Admin: 10/08/16 10:53 Dose: 200 mls/hr Magnesium Oxide (Magnesium Oxide) 400 mg PO ONETIME ONE Stop: 10/05/16 08:31 Last Admin: 10/05/16 08:22 Dose: 400 mg Magnesium Sulfate (Pharmacy To Dose - Magnesium Replacement) 1 dose .XX ASDIRECTED [facility] Non-Formulary Medication (Lactobacillus Acidophilus [Acidophilus]) 1 tab PO DAILY [facility] Oxycodone HCl (Oxycontin) 10 mg PO Q12HR [facility] Oxycodone HCl (Oxycontin) 5 mg PO Q12HR [facility] Oxycodone HCl (Oxycodone) 5 mg PO Q12HR [facility] Last Admin: 10/07/16 08:15 Dose: 5 mg Potassium Chloride (Klor-Con M20) 20 meq PO ONETIME ONE Stop: 10/04/16 15:32 Last Admin: 10/04/16 15:41 Dose: 20 meq Potassium Chloride (Pharmacy To Dose - Potassium Replacement) 1 dose .XX ASDIRECTED [facility] Potassium Chloride (Klor-Con M20) 40 meq PO Q4H [facility] Stop: 10/05/16 16:16 Last Admin: 10/05/16 18:05 Dose: 40 meq Potassium Chloride (Potassium Chloride Solution) 40 meq PO ONETIME ONE Stop: 10/08/16 09:48 Last Admin: 10/08/16 10:50 Dose: 40 meq - Exam Quality Assessment: supplemental oxygen, DVT prophylaxis General: alert, oriented, cooperative, no acute distress HEENT: Pupils equal, Pupils reactive, EOMI Neck: supple, trachea midline, no JVD Lungs: Normal respiratory effort, Decreased breath sounds Cardiovascular: Regular Rate Abdomen: bowel sounds present, soft, no tenderness, no distension (Female) Exam: Deferred Back Exam: Normal Inspection Extremities: normal pulses Skin: warm Neurological: no new focal deficit Psy/Mental Status: alert, normal affect, normal mood - Problem List & Annotations (1) Acute exacerbation of chronic low back pain SNOMED Code(s): 659433802 Code(s): M54.5 - LOW BACK PAIN; G89.29 - OTHER CHRONIC PAIN Status: Acute Priority: High Current Visit: Yes (2) Fall at home SNOMED Code(s): 49462425 Code(s): W19.XXXA - UNSPECIFIED FALL, INITIAL ENCOUNTER; Y92.099 - UNSP PLACE IN OTH NON-INSTITUTIONAL RESIDENCE PLACE Status: Acute Priority: High Current Visit: Yes Qualifiers: Encounter type: initial encounter Qualified Code(s): W19.XXXA - Unspecified fall, initial encounter; Y92.099 - Unspecified place in other non- institutional residence as the place of occurrence of the external cause (3) Hypokalemia SNOMED Code(s): 56563524 Code(s): E87.6 - HYPOKALEMIA Status: Acute Priority: High Current Visit : Yes (4) UTI (urinary tract infection) SNOMED Code(s): 68610115 Code(s): N39.0 - URINARY TRACT INFECTION, SITE NOT SPECIFIED Status: Acute Priority: High Current Visit: Yes Qualifiers: Urinary tract infection type: acute cystitis Hematuria presence: without hematuria Qualified Code(s): N30.00 - Acute cystitis without hematuria (5) DJD (degenerative joint disease) SNOMED Code(s): 063519306 Code(s): M19.90 - UNSPECIFIED OSTEOARTHRITIS, UNSPECIFIED SITE Status: Chronic Priority: Medium Current Visit: Yes Qualifiers: Osteoarthritis location: unspecified site (6) Diabetes mellitus SNOMED Code(s): 48315578 Code(s): E11.9 - TYPE 2 DIABETES MELLITUS WITHOUT COMPLICATIONS Status: Chronic Priority: Medium Current Visit: Yes Qualifiers: Diabetes mellitus type: type 2 Diabetes mellitus middle or intermediate school principal insulin use: with residential use - Problem List Review Problem List Initiated/Reviewed/Updated: Yes - My Orders Last 24 Hours: My Active Orders 10/07/16 16:32 Acetaminophen [Tylenol] 650 mg PO Q4H PRN 10/09/16 05:00 BASIC METABOLIC PANEL,BMP [CHEM] DAILY CBC WITH AUTO DIFF [HEME] DAILY MAGNESIUM [CHEM] DAILY 10/09/16 10:00 cefTRIAXone [Rocephin] 2 gm Sodium Chloride 0.9% [Normal Saline] 100 ml IV Q24H 10/10/16 05:00 BASIC METABOLIC PANEL,BMP [CHEM] DAILY CBC WITH AUTO DIFF [HEME] DAILY MAGNESIUM [CHEM] DAILY 10/11/16 05:00 BASIC METABOLIC PANEL,BMP [CHEM] DAILY CBC WITH AUTO DIFF [HEME] DAILY MAGNESIUM [CHEM] DAILY - Plan Plan:: Impression: AUTI, uncomplicated on Rocephin DM with hyperglycemia Acute on chronic pain S/P Fall with back pain; right elbow and left knee controlled with Tylenol Gen weakness Hypokalemia Chronic AFib on Eliquis HTN HFPEF CKD Plan Cont ATB Daily Labs Home meds PT/OT/SW, anticipate [place] DC on 10/09/16 DVT/GI prophylaxis LOS>96 hours for Tx and placement
[2016-10-08] MEDS: Gabapentin 100 MG Cap PO SCH (20:28)
[2016-10-08] MEDS: Latanoprost 0.005% Ophth Soln 2.5 ML Bottle EYEBOTH SCH (20:29)
[2016-10-09] MEDS: Pantoprazole 40 MG Tab.CR PO SCH (06:35)
[2016-10-09] MEDS: Insulin Aspart 100 Units/ML 3 ML Pen SUBCUT SCH ×2 (06:46→11:36)
[2016-10-09] MEDS: Tiotropium Inhaler 18 MCG Inhalation Powder Cap Kit of 5 INH SCH (08:18)
[2016-10-09 08:22] VITALS: BP 112/81
[2016-10-09] MEDS: Calcium Carbonate/Vitamin D3 1500 MG-200 Units Tab PO SCH (08:33)
[2016-10-09] MEDS: Losartan 25 MG Tab PO SCH (08:34)
[2016-10-09] MEDS: Apixaban 5 MG Tab PO SCH (08:35)
[2016-10-09] MEDS: Saccharomyces Boulardii (Probiotic) 250 MG Cap PO SCH (08:36)
[2016-10-09] MEDS: Furosemide 40 MG Tab PO SCH (08:36)
[2016-10-09] MEDS: Loperamide 2 MG Cap PO SCH (08:36)
[2016-10-09] MEDS: Insulin Detemir 100 Units/ML 3 ML Pen SUBCUT SCH (08:37)
[2016-10-09] MEDS: predniSONE 5 MG Tab PO SCH (08:38)
[2016-10-09] MEDS: Saxagliptin 5 MG Tab PO SCH (08:38)
[2016-10-09] MEDS: Atenolol 50 MG Tab PO SCH (08:39)
[2016-10-09] MEDS: Multivitamins,Therapeutic Tab PO SCH (08:40)
--- NOTE | 2016-10-09 08:47 | PCM.DCSUM1 ---
<Venessa Escoto - Last Filed: 10/09/16 08:47> Discharge Summary - Hospital Course Free Text/Narrative:: This is an 89-year-old elderly white female with past medical history of chronic atrial fibrillation on eliquis, hypertension, congestive heart failure with preserved EF (unknown last 2D echo), type 2 diabetes, and history of bullous pemphigoid on chronic oral steroid who presents to the emergency department for evaluation of low back pain that has been going on since Sunday morning. Her pain is spastic in nature that radiates to her buttocks, right groin and right anterior thigh. She rates her pain as 10 out of 10 on pain scale. Last night she fell backwards while she was on her way to the bathroom. She denies any prodromal symptoms. She did hit her head on her way down but denies losing consciousness or any lingering headaches. Patient denies any numbness or tingling. No loss of bowel or bladder control. No shortness of breath, chest pain, nausea vomiting or abdominal complaints. Her initial workup in emergency department reveals a CBC remarkable for WBC of 13.2, hematocrit 47.4, and neutrophil counts of 11.88. Her chemistry is remarkable for potassium of 2.2, chloride of 95, carbon dioxide of 33, BUN of 19 , creatinine 1.4, glucose of 238, alkaline phosphatase 32 and BNP of 781. Her UA is suggestive for UTI. All imaging studies to include Head CT scan reveal no acute abnormal findings. Patient is being admitted for UTI and acute back pain status post fall. She is DNR/DNI. UC was + for ecoli, sensitive to Rocephin. She rec'd 5 days of IV tx, will cont on ceftin BID x 5 more days as outpatient. Acute on chronic back pain s/p fall was controlled with muscle relaxant, tylenol and hydrocodone. She worked with PT /OT did well, recommendations for SNF for rehab stay. Patient will be dc'd to [facility] in [place] today. She should follow up with PCP, Dr. Aburto within one week of discharge, labs on of this week, BMP and magnesium to follow potassium. She is discharged on 40meq of KCL BID. - Discharge Data Discharge Date: 10/09/16 (admit date 10/04/16) Discharge Disposition: DC/Tfer to SNF 03 Condition: Good - Discharge Diagnosis/Problem(s) (1) Acute exacerbation of chronic low back pain SNOMED Code(s): 200103345 ICD Code: M54.5 - LOW BACK PAIN; G89.29 - OTHER CHRONIC PAIN Status: Acute Priority: High (2) Fall at home SNOMED Code(s): 89484142 ICD Code: W19.XXXA - UNSPECIFIED FALL, INITIAL ENCOUNTER; Y92.099 - UNSP PLACE IN OTH NON-INSTITUTIONAL RESIDENCE PLACE Status: Acute Priority: High Qualifiers: Encounter type: initial encounter Qualified Code(s): W19.XXXA - Unspecified fall, initial encounter; Y92.099 - Unspecified place in other non- institutional residence as the place of occurrence of the external cause (3) UTI (urinary tract infection) SNOMED Code(s): 19751393 ICD Code: N39.0 - URINARY TRACT INFECTION, SITE NOT SPECIFIED Status: Resolved Priority: High Qualifiers: Urinary tract infection type: acute cystitis Hematuria presence: without hematuria Qualified Code(s): N30.00 - Acute cystitis without hematuria (4) DJD (degenerative joint disease) SNOMED Code(s): 815108409 ICD Code: M19.90 - UNSPECIFIED OSTEOARTHRITIS, UNSPECIFIED SITE Status: Chronic Priority: Medium Qualifiers: Osteoarthritis location: unspecified site (5) Diabetes mellitus SNOMED Code(s): 11771133 ICD Code: E11.9 - TYPE 2 DIABETES MELLITUS WITHOUT COMPLICATIONS Status: Chronic Priority: Medium Qualifiers: Diabetes mellitus type: type 2 Diabetes mellitus brick wheeler insulin use: with mcc use (6) Hypokalemia SNOMED Code(s): 56527912 ICD Code: E87.6 - HYPOKALEMIA Status: Acute Priority: High - Patient Summary/Data Operative Procedure(s) Performed: None Complications: None Consults: None Labs Pending at D/C: None Recommended Follow-up Testing/Procedures: Physical and Occupational Therapy to continue to evaluate and treat at [place]. Check blood sugars before meals, at bedtime and as needed. Daily weight. Keep a record for your primary doctor. Follow up with PCP, Dr. Aburto within one week of discharge. Planned Operative Procedure(s) after DC: None Hospital Course: As above - Patient Instructions Diet: Heart Healthy Diet, Diabetic Diet Activity: As Tolerated (PT/OT to continue at [place]) Driving: Do Not Drive Showering/Bathing: May Shower Notify Provider of: Fever, Increased Pain, Nausea and/or Vomiting - Discharge Plan Prescriptions/Med Rec: Acetaminophen/HYDROcodone [Herndon 325-5 MG] 1 tab PO Q4H PRN #40 tablet PRN Reason: Pain Cefuroxime [Ceftin] 250 mg PO BID #10 tablet Insulin Detemir [Levemir] 7 unit SUBCUT BEDTIME #2 pen Insulin Detemir [Levemir] 8 unit SUBCUT DAILY #2 pen Potassium Chloride [K-Tab ER] 40 meq PO BID #60 tablet.er tiZANidine [Zanaflex] 2 mg PO Q6H PRN #60 tablet PRN Reason: back pain Home Medications: Home Meds Apixaban [Eliquis] 2.5 mg PO BID 10/04/16 [History] Atenolol 100 mg PO DAILY 10/04/16 [History] Atrovent 0.06% 2 spray INH BID 10/04/16 [History] Calcium Carbonate/Vitamin D3 [Caltrate 600 + D Soft Chew Tab] 1 tab PO DAILY 08/16 [History] Furosemide [Lasix] 40 mg PO DAILY 10/04/16 [History] Gabapentin [Neurontin] 100 mg PO BEDTIME 10/04/16 [History] Lactobacillus Acidophilus [Acidophilus] 1 tab PO DAILY 10/04/16 [History] Latanoprost [Xalatan 0.005% Ophth Soln] 1 drop EYEBOTH BEDTIME 10/04/16 [History ] Loperamide [Imodium] 2 mg PO DAILY 10/04/16 [History] Losartan [Cozaar] 25 mg PO DAILY 10/04/16 [History] Multivitamin [Multivitamins] 1 tab PO DAILY 10/04/16 [History] Omeprazole 40 mg PO DAILY 10/04/16 [History] Prednisone [IJD: Prednisone] 15 mg PO DAILY 10/04/16 [History] Saxagliptin HCl [Onglyza] 5 mg PO DAILY 10/04/16 [History] Ubidecarenone [Co Q-10] 100 mg PO DAILY 10/04/16 [History] Acetaminophen [Tylenol] 650 mg PO Q4H PRN #0 tablet 10/09/16 [Rx] Acetaminophen/HYDROcodone [Herndon 325-5 MG] 1 tab PO Q4H PRN #40 tablet 10/09/16 [Rx] Cefuroxime [Ceftin] 250 mg PO BID #10 tablet 10/09/16 [Rx] Insulin Detemir [Levemir] 7 unit SUBCUT BEDTIME #2 pen 10/09/16 [Rx] Insulin Detemir [Levemir] 8 unit SUBCUT DAILY #2 pen 10/09/16 [Rx] Potassium Chloride [K-Tab ER] 40 meq PO BID #60 tablet.er 10/09/16 [Rx] tiZANidine [Zanaflex] 2 mg PO Q6H PRN #60 tablet 10/09/16 [Rx] Patient Handouts: Fall Prevention in the Home, [id number], Urinary Tract Infection, Adult, [id number], Heart Failure, [id number], Apixaban oral tablets, E. Coli Infection Forms: ED Department Discharge Referrals: Garret Aburto MD [Primary Care Provider] - - Discharge Summary/Plan Comment DC Time >30 min.: Yes (40 min) - General Info Date of Service: 10/09/16 Admission Dx/Problem (Free Text: Acute on Chronic Pain--back pain, fall, UTI Functional Status: Reports: pain controlled, tolerating diet, ambulating, urinating. Denies: new symptoms - Review of Systems General: Reports: No Symptoms, Weakness (improving) HEENT: Reports: no symptoms Pulmonary: Reports: no symptoms Cardiovascular: Reports: No Symptoms Gastrointestinal: Reports: No symptoms Genitourinary: Reports: no symptoms Musculoskeletal: Reports: back pain (chronic- improved) Skin: Reports: no symptoms Neurological: Reports: Numbness, Tingling (lower extremities- chronic, unchanged ) Psychiatric: Reports: no symptoms - Patient Data Vitals - Most Recent: Last Vital Signs Temp 98.1 F 10/09/16 08:16 Pulse 90 10/09/16 08:39 Resp 20 10/09/16 08:16 BP 112/81 10/09/16 08:39 Pulse Ox 97 10/09/16 08:16 Weight - Most Recent: 72.03 kg I&O - Last 24 hours: Intake & Output 10/08/16 10/09/16 10/09/16 22:59 06:59 14:59 Intake Total 1150 225 Output Total 1100 400 Balance 50 -175 Lab Results - Last 24 hrs: Laboratory Results - last 24 hr 10/08/16 10/08/16 10/08/16 Range/Units 10:25 17:26 20:25 WBC (3.98-10.04) K/mm3 RBC (3.98-5.22) M/mm3 Hgb (11.2-15.7) gm/L Hct (34.1-44.9) % MCV (79.4-94.8) fl MCH (25.6-32.2) pg MCHC (32.2-35.5) g/dl RDW Std Deviation (36.4-46.3) fL Plt Count (182-369) K/mm3 MPV (9.4-12.3) fl Neut % (Auto) (34.0-71.1) % Lymph % (Auto) (19.3-51.7) % [place] % (Auto) (4.7-12.5) % Eos % (Auto) (0.7-5.8) Baso % (Auto) (0.1-1.2) % Neut # (Auto) (1.56-6.13) K/mm3 Lymph # (Auto) (1.18-3.74) K/mm3 [place] # (Auto) (0.24-0.36) K/mm3 Eos # (Auto) (0.04-0.36) K/mm3 Baso # (Auto) (0.01-0.08) K/mm3 Manual Slide Review Sodium (136-145) mEq/L Potassium (3.5-5.1) mEq/L Chloride (98-107) mEq/L Carbon Dioxide (21-32) mEq/L Anion Gap (5-15) BUN (7-18) mg/dL Creatinine (0.55-1.02) mg/dL Est Cr Clr Drug Dosing mL/min Estimated GFR (MDRD) (>60) mL/min BUN/Creatinine Ratio (14-18) Glucose (83-115) mg/dL POC Glucose 251 H 259 H 341 H (83-110) mg/dL Calcium (8.5-10.1) mg/dL Magnesium (1.8-2.4) mg/dl 07/01/1610/09/16 10/09/16 Range/Units 06:00 06:00 06:07 WBC 11.56 H (3.98-10.04) K/mm3 RBC 4.46 (3.98-5.22) M/mm3 Hgb 13.5 (11.2-15.7) gm/L Hct 41.9 (34.1-44.9) % MCV 93.9 (79.4-94.8) fl MCH 30.3 (25.6-32.2) pg MCHC 32.2 (32.2-35.5) g/dl RDW Std Deviation 51.9 H (36.4-46.3) fL Plt Count 208 (182-369) K/mm3 MPV 10.4 (9.4-12.3) fl Neut % (Auto) 73.5 H (34.0-71.1) % Lymph % (Auto) 10.6 L (19.3-51.7) % [place] % (Auto) 9.4 (4.7-12.5) % Eos % (Auto) 0.8 (0.7-5.8) Baso % (Auto) 0.3 (0.1-1.2) % Neut # (Auto) 8.49 H (1.56-6.13) K/mm3 Lymph # (Auto) 1.23 (1.18-3.74) K/mm3 [place] # (Auto) 1.09 H (0.24-0.36) K/mm3 Eos # (Auto) 0.09 (0.04-0.36) K/mm3 Baso # (Auto) 0.04 (0.01-0.08) K/mm3 Manual Slide Review Normal smear Sodium 140 (136-145) mEq/L Potassium 3.4 L (3.5-5.1) mEq/L Chloride 102 (98-107) mEq/L Carbon Dioxide 28 (21-32) mEq/L Anion Gap 13.4 (5-15) BUN 35 H (7-18) mg/dL Creatinine 1.4 H (0.55-1.02) mg/dL Est Cr Clr Drug Dosing 22.53 mL/min Estimated GFR (MDRD) 35 (>60) mL/min BUN/Creatinine Ratio 25.0 H (14-18) Glucose 125 H (83-115) mg/dL POC Glucose 120 H (83-110) mg/dL Calcium 8.8 (8.5-10.1) mg/dL Magnesium 2.2 (1.8-2.4) mg/dl Med Orders - Current: Current Medications Acetaminophen (Tylenol) 650 mg PO Q4H PRN PRN Reason: Pain Last Admin: 10/07/16 21:04 Dose: 650 mg Hydrocodone Bitart/Acetaminophen (Herndon 325-5 Mg) 1 tab PO Q4H PRN PRN Reason: Pain (moderate 4-6) Albuterol/Ipratropium (Duoneb 3.0-0.5 Mg/3 Ml) 3 ml NEB Q4H PRN PRN Reason: Shortness Of Breath/wheezing Apixaban (Eliquis) 2.5 mg PO BID [facility] Last Admin: 10/09/16 08:35 Dose: 2.5 mg Atenolol (Tenormin) 100 mg PO DAILY [facility] Last Admin: 10/09/16 08:39 Dose: 100 mg Bisacodyl (Dulcolax) 5 mg PO DAILY PRN PRN Reason: Constipation Calcium Carbonate (Calcium Carbonate/Vitamin D 1500 Mg-200 Unit) 1 tab PO DAILY [facility] Last Admin: 10/09/16 08:33 Dose: 1 tab Dextrose/Water (Dextrose 50% In Water) 50 ml IVPUSH ASDIRECTED PRN PRN Reason: Hypoglycemia Docusate Sodium (Colace) 100 mg PO BID PRN PRN Reason: Constipation Furosemide (Lasix) 40 mg PO DAILY [facility] Last Admin: 10/09/16 08:36 Dose: 40 mg Gabapentin (Neurontin) 100 mg PO BEDTIME [facility] Last Admin: 10/08/16 20:28 Dose: 100 mg Hydralazine HCl (Apresoline) 10 mg IVPUSH Q4H PRN PRN Reason: Hypertension Hydromorphone HCl (Dilaudid) 0.25 mg IVPUSH Q4H PRN PRN Reason: Pain (severe 7-10) Promethazine HCl 12.5 mg/ (Sodium Chloride) 50.5 mls @ 100 mls/hr IV Q6H PRN PRN Reason: Nausea/Vomiting Ceftriaxone Sodium 2 gm/ (Sodium Chloride) 100 mls @ 200 mls/hr IV Q24H [facility] Insulin Aspart (Novolog) 0 unit SUBCUT QIDACANDBED [facility] PRN Reason: Protocol Last Admin: 10/09/16 06:46 Dose: Not Given Insulin Detemir (Levemir) 7 unit SUBCUT BEDTIME [facility] Last Admin: 10/08/16 20:28 Dose: 7 unit Insulin Detemir (Levemir) 8 unit SUBCUT DAILY [facility] Last Admin: 10/09/16 08:37 Dose: 8 units Latanoprost (Xalatan 0.005% Ophth Soln) 0 ml EYEBOTH BEDTIME [facility] Last Admin: 10/08/16 20:29 Dose: 1 drop Loperamide HCl (Imodium) 2 mg PO DAILY [facility] Last Admin: 10/09/16 08:36 Dose: Not Given Lorazepam (Ativan) 0.25 mg IV Q6H PRN PRN Reason: Anxiety Losartan Potassium (Cozaar) 25 mg PO DAILY [facility] Last Admin: 10/09/16 08:34 Dose: 25 mg Metoprolol Tartrate (Lopressor) 5 mg IVPUSH Q4H PRN PRN Reason: Tachycardia Multivitamins (Thera) 1 each PO DAILY [facility] Last Admin: 10/09/16 08:40 Dose: 1 each Ondansetron HCl (Zofran) 4 mg IV Q6H PRN PRN Reason: Nausea/Vomiting Pantoprazole Sodium (Protonix) 40 mg PO DAILY@0700 [facility] Last Admin: 10/09/16 06:35 Dose: 40 mg Ubidecarenone 100 Mg 0 each PO DAILY [facility] Last Admin: 10/09/16 08:39 Dose: Not Given Polyethylene Glycol (Miralax) 17 gm PO DAILY PRN PRN Reason: Constipation Prednisone (Prednisone) 15 mg PO DAILY [facility] Last Admin: 10/09/16 08:38 Dose: 15 mg Saccharomyces Boulardii (Florastor) 250 mg PO DAILY [facility] Last Admin: 10/09/16 08:36 Dose: 250 mg Saxagliptin Hydrochloride (Onglyza) 5 mg PO DAILY [facility] Last Admin: 10/09/16 08:38 Dose: 5 mg Senna/Docusate Sodium (Senna Plus) 1 tab PO BID PRN PRN Reason: Constipation Sodium Chloride (Saline Flush) 10 ml FLUSH ASDIRECTED PRN PRN Reason: Keep Vein Open Last Admin: 10/04/16 12:41 Dose: 10 ml Temazepam (Restoril) 7.5 mg PO BEDTIME PRN PRN Reason: Sleep Tiotropium [place] (Spiriva Handihaler) 18 mcg INH DAILY [facility] Last Admin: 10/09/16 08:18 Dose: 1 puff Tizanidine HCl (Zanaflex) 2 mg PO Q6H PRN PRN Reason: Muscle Spasm Discontinued Medications Acetaminophen (Tylenol) 650 mg PO NOW ONE Stop: 10/04/16 13:32 Last Admin: 10/04/16 14:32 Dose: 650 mg Diazepam (Valium) 2 mg IVPUSH ONETIME ONE Stop: 10/04/16 12:16 Last Admin: 10/04/16 12:41 Dose: 2 mg Diazepam (Valium) 2 mg IVPUSH ONETIME ONE Stop: 10/04/16 13:32 Last Admin: 10/04/16 14:28 Dose: 2 mg Diphtheria/Tetanus/Acell Pertussis (Adacel) 0.5 ml IM .ONCE ONE Stop: 10/06/16 18:26 Hydromorphone HCl (Dilaudid) 0.25 mg IVPUSH ONETIME ONE Stop: 10/04/16 15:19 Last Admin: 10/04/16 15:39 Dose: 0.25 mg Sodium Chloride (Normal Saline) 1,000 mls @ 100 mls/hr IV ONETIME ONE Stop: 10/04/16 23:14 Last Admin: 10/04/16 14:25 Dose: 100 mls/hr Ceftriaxone Sodium 1 gm/ (Sodium Chloride) 100 mls @ 200 mls/hr IV ONETIME ONE Stop: 10/04/16 16:03 Last Admin: 10/04/16 15:59 Dose: 200 mls/hr Ceftriaxone Sodium 1 gm/ (Sodium Chloride) 100 mls @ 200 mls/hr IV Q24H [facility] Last Admin: 10/08/16 09:23 Dose: 200 mls/hr Sodium Chloride (Normal Saline) Confirm Administered Dose 100 mls @ as directed .ROUTE .STK-MED ONE Stop: 10/06/16 09:05 Last Admin: 10/06/16 09:12 Dose: 1 ml Magnesium Sulfate 2 gm/ Premix 50 mls @ 25 mls/hr IV ONETIME ONE Stop: 10/07/16 15:29 Last Admin: 10/07/16 15:36 Dose: 25 mls/hr Ceftriaxone Sodium 2 gm/ (Sodium Chloride) 100 mls @ 200 mls/hr IV Q24H [facility] Ceftriaxone Sodium 1 gm/ (Sodium Chloride) 100 mls @ 200 mls/hr IV ONETIME ONE Stop: 10/08/16 11:14 Last Admin: 10/08/16 10:53 Dose: 200 mls/hr Magnesium Oxide (Magnesium Oxide) 400 mg PO ONETIME ONE Stop: 10/05/16 08:31 Last Admin: 10/05/16 08:22 Dose: 400 mg Magnesium Sulfate (Pharmacy To Dose - Magnesium Replacement) 1 dose .XX ASDIRECTED [facility] Non-Formulary Medication (Lactobacillus Acidophilus [Acidophilus]) 1 tab PO DAILY [facility] Oxycodone HCl (Oxycontin) 10 mg PO Q12HR [facility] Oxycodone HCl (Oxycontin) 5 mg PO Q12HR [facility] Oxycodone HCl (Oxycodone) 5 mg PO Q12HR [facility] Last Admin: 10/07/16 08:15 Dose: 5 mg Potassium Chloride (Klor-Con M20) 20 meq PO ONETIME ONE Stop: 10/04/16 15:32 Last Admin: 10/04/16 15:41 Dose: 20 meq Potassium Chloride (Pharmacy To Dose - Potassium Replacement) 1 dose .XX ASDIRECTED [facility] Potassium Chloride (Klor-Con M20) 40 meq PO Q4H [facility] Stop: 10/05/16 16:16 Last Admin: 10/05/16 18:05 Dose: 40 meq Potassium Chloride (Potassium Chloride Solution) 40 meq PO ONETIME ONE Stop: 10/08/16 09:48 Last Admin: 10/08/16 10:50 Dose: 40 meq - Exam Quality Assessment: Reports: DVT prophylaxis General: Reports: alert, oriented, cooperative, no acute distress HEENT: Reports: Pupils equal, Pupils reactive, EOMI, Mucous membr. moist/pink Neck: Reports: supple Lungs: Reports: Clear to auscultation, Normal respiratory effort, Decreased breath sounds (bases bilat) Cardiovascular: Reports: Regular Rate, Regular Rhythm Abdomen: Reports: bowel sounds present, soft, no tenderness (Female) Exam: Deferred Rectal (Female) Exam: Deferred Back Exam: Reports: Normal Inspection Extremities: Reports: edema (trace to ankles) Neurological: Reports: no new focal deficit Psy/Mental Status: Reports: alert, normal affect, normal mood *Q Meaningful Use (DIS) - VTE *Q VTE Criteria *Q: - Stroke *Q Stroke Criteria *Q: - AMI *Q AMI Criteria *Q: <Fang Franklin - Last Filed: 10/09/16 14:23> Discharge Summary - Hospital Course Free Text/Narrative:: Treatment for UTI; had a fall as a patient with negative radiographic studies. - Discharge Diagnosis/Problem(s) (1) Acute exacerbation of chronic low back pain SNOMED Code(s): 328917727 ICD Code: M54.5 - LOW BACK PAIN; G89.29 - OTHER CHRONIC PAIN Status: Acute Priority: High (2) Fall at home SNOMED Code(s): 40572241 ICD Code: W19.XXXA - UNSPECIFIED FALL, INITIAL ENCOUNTER; Y92.099 - UNSP PLACE IN OTH NON-INSTITUTIONAL RESIDENCE PLACE Status: Acute Priority: High Qualifiers: Encounter type: initial encounter Qualified Code(s): W19.XXXA - Unspecified fall, initial encounter; Y92.099 - Unspecified place in other non- institutional residence as the place of occurrence of the external cause (3) Hypokalemia SNOMED Code(s): 86605486 ICD Code: E87.6 - HYPOKALEMIA Status: Acute Priority: High (4) UTI (urinary tract infection) SNOMED Code(s): 09950617 ICD Code: N39.0 - URINARY TRACT INFECTION, SITE NOT SPECIFIED Status: Resolved Priority: High Qualifiers: Urinary tract infection type: acute cystitis Hematuria presence: without hematuria Qualified Code(s): N30.00 - Acute cystitis without hematuria (5) DJD (degenerative joint disease) SNOMED Code(s): 289477094 ICD Code: M19.90 - UNSPECIFIED OSTEOARTHRITIS, UNSPECIFIED SITE Status: Chronic Priority: Medium Qualifiers: Osteoarthritis location: unspecified site (6) Diabetes mellitus SNOMED Code(s): 66381662 ICD Code: E11.9 - TYPE 2 DIABETES MELLITUS WITHOUT COMPLICATIONS Status: Chronic Priority: Medium Qualifiers: Diabetes mellitus type: type 2 Diabetes mellitus brick wheeler insulin use: with mcc use - Patient Data Vitals - Most Recent: Last Vital Signs Temp 36.7 C 10/09/16 08:16 Pulse 90 10/09/16 08:39 Resp 20 10/09/16 08:16 BP 112/81 10/09/16 08:39 Pulse Ox 97 10/09/16 08:16 I&O - Last 24 hours: Intake & Output 10/08/16 10/09/16 10/09/16 22:59 06:59 14:59 Intake Total 1150 225 180 Output Total 1100 400 Balance 50 -175 180 Lab Results - Last 24 hrs: Laboratory Results - last 24 hr 10/08/16 10/08/16 10/09/16 Range/Units 17:26 20:25 06:00 WBC 11.56 H (3.98-10.04) K/mm3 RBC 4.46 (3.98-5.22) M/mm3 Hgb 13.5 (11.2-15.7) gm/L Hct 41.9 (34.1-44.9) % MCV 93.9 (79.4-94.8) fl MCH 30.3 (25.6-32.2) pg MCHC 32.2 (32.2-35.5) g/dl RDW Std Deviation 51.9 H (36.4-46.3) fL Plt Count 208 (182-369) K/mm3 MPV 10.4 (9.4-12.3) fl Neut % (Auto) 73.5 H (34.0-71.1) % Lymph % (Auto) 10.6 L (19.3-51.7) % [place] % (Auto) 9.4 (4.7-12.5) % Eos % (Auto) 0.8 (0.7-5.8) Baso % (Auto) 0.3 (0.1-1.2) % Neut # (Auto) 8.49 H (1.56-6.13) K/mm3 Lymph # (Auto) 1.23 (1.18-3.74) K/mm3 [place] # (Auto) 1.09 H (0.24-0.36) K/mm3 Eos # (Auto) 0.09 (0.04-0.36) K/mm3 Baso # (Auto) 0.04 (0.01-0.08) K/mm3 Manual Slide Review Normal smear Sodium (136-145) mEq/L Potassium (3.5-5.1) mEq/L Chloride (98-107) mEq/L Carbon Dioxide (21-32) mEq/L Anion Gap (5-15) BUN (7-18) mg/dL Creatinine (0.55-1.02) mg/dL Est Cr Clr Drug Dosing mL/min Estimated GFR (MDRD) (>60) mL/min BUN/Creatinine Ratio (14-18) Glucose (83-115) mg/dL POC Glucose 259 H 341 H (83-110) mg/dL Calcium (8.5-10.1) mg/dL Magnesium (1.8-2.4) mg/dl 10/09/16 10/09/16 Range/Units 06:00 06:07 WBC (3.98-10.04) K/mm3 RBC (3.98-5.22) M/mm3 Hgb (11.2-15.7) gm/L Hct (34.1-44.9) % MCV (79.4-94.8) fl MCH (25.6-32.2) pg MCHC (32.2-35.5) g/dl RDW Std Deviation (36.4-46.3) fL Plt Count (182-369) K/mm3 MPV (9.4-12.3) fl Neut % (Auto) (34.0-71.1) % Lymph % (Auto) (19.3-51.7) % [place] % (Auto) (4.7-12.5) % Eos % (Auto) (0.7-5.8) Baso % (Auto) (0.1-1.2) % Neut # (Auto) (1.56-6.13) K/mm3 Lymph # (Auto) (1.18-3.74) K/mm3 [place] # (Auto) (0.24-0.36) K/mm3 Eos # (Auto) (0.04-0.36) K/mm3 Baso # (Auto) (0.01-0.08) K/mm3 Manual Slide Review Sodium 140 (136-145) mEq/L Potassium 3.4 L (3.5-5.1) mEq/L Chloride 102 (98-107) mEq/L Carbon Dioxide 28 (21-32) mEq/L Anion Gap 13.4 (5-15) BUN 35 H (7-18) mg/dL Creatinine 1.4 H (0.55-1.02) mg/dL Est Cr Clr Drug Dosing 22.53 mL/min Estimated GFR (MDRD) 35 (>60) mL/min BUN/Creatinine Ratio 25.0 H (14-18) Glucose 125 H (83-115) mg/dL POC Glucose 120 H (83-110) mg/dL Calcium 8.8 (8.5-10.1) mg/dL Magnesium 2.2 (1.8-2.4) mg/dl Med Orders - Current: Current Medications Acetaminophen (Tylenol) 650 mg PO Q4H PRN PRN Reason: Pain Last Admin: 10/07/16 21:04 Dose: 650 mg Hydrocodone Bitart/Acetaminophen ([place] 325-5 Mg) 1 tab PO Q4H PRN PRN Reason: Pain (moderate 4-6) Albuterol/Ipratropium (Duoneb 3.0-0.5 Mg/3 Ml) 3 ml NEB Q4H PRN PRN Reason: Shortness Of Breath/wheezing Apixaban (Eliquis) 2.5 mg PO BID [facility] Last Admin: 10/09/16 08:35 Dose: 2.5 mg Atenolol (Tenormin) 100 mg PO DAILY [facility] Last Admin: 10/09/16 08:39 Dose: 100 mg Bisacodyl (Dulcolax) 5 mg PO DAILY PRN PRN Reason: Constipation Calcium Carbonate (Calcium Carbonate/Vitamin D 1500 Mg-200 Unit) 1 tab PO DAILY [facility] Last Admin: 10/09/16 08:33 Dose: 1 tab Dextrose/Water (Dextrose 50% In Water) 50 ml IVPUSH ASDIRECTED PRN PRN Reason: Hypoglycemia Docusate Sodium (Colace) 100 mg PO BID PRN PRN Reason: Constipation Furosemide (Lasix) 40 mg PO DAILY [facility] Last Admin: 10/09/16 08:36 Dose: 40 mg Gabapentin (Neurontin) 100 mg PO BEDTIME [facility] Last Admin: 10/08/16 20:28 Dose: 100 mg Hydralazine HCl (Apresoline) 10 mg IVPUSH Q4H PRN PRN Reason: Hypertension Hydromorphone HCl (Dilaudid) 0.25 mg IVPUSH Q4H PRN PRN Reason: Pain (severe 7-10) Promethazine HCl 12.5 mg/ (Sodium Chloride) 50.5 mls @ 100 mls/hr IV Q6H PRN PRN Reason: Nausea/Vomiting Ceftriaxone Sodium 2 gm/ (Sodium Chloride) 100 mls @ 200 mls/hr IV Q24H [facility] Last Admin: 10/09/16 10:30 Dose: 200 mls/hr Insulin Aspart (Novolog) 0 unit SUBCUT QIDACANDBED [facility] PRN Reason: Protocol Last Admin: 10/09/16 11:36 Dose: 1 units Insulin Detemir (Levemir) 7 unit SUBCUT BEDTIME [facility] Last Admin: 10/08/16 20:28 Dose: 7 unit Insulin Detemir (Levemir) 8 unit SUBCUT DAILY [facility] Last Admin: 10/09/16 08:37 Dose: 8 units Latanoprost (Xalatan 0.005% Ophth Soln) 0 ml EYEBOTH BEDTIME [facility] Last Admin: 10/08/16 20:29 Dose: 1 drop Loperamide HCl (Imodium) 2 mg PO DAILY [facility] Last Admin: 10/09/16 08:36 Dose: Not Given Lorazepam (Ativan) 0.25 mg IV Q6H PRN PRN Reason: Anxiety Losartan Potassium (Cozaar) 25 mg PO DAILY [facility] Last Admin: 10/09/16 08:34 Dose: 25 mg Metoprolol Tartrate (Lopressor) 5 mg IVPUSH Q4H PRN PRN Reason: Tachycardia Multivitamins (Thera) 1 each PO DAILY [facility] Last Admin: 10/09/16 08:40 Dose: 1 each Ondansetron HCl (Zofran) 4 mg IV Q6H PRN PRN Reason: Nausea/Vomiting Pantoprazole Sodium (Protonix) 40 mg PO DAILY@0700 [facility] Last Admin: 10/09/16 06:35 Dose: 40 mg Ubidecarenone 100 Mg 0 each PO DAILY [facility] Last Admin: 10/09/16 08:39 Dose: Not Given Polyethylene Glycol (Miralax) 17 gm PO DAILY PRN PRN Reason: Constipation Prednisone (Prednisone) 15 mg PO DAILY [facility] Last Admin: 10/09/16 08:38 Dose: 15 mg Saccharomyces Boulardii (Florastor) 250 mg PO DAILY [facility] Last Admin: 07/10/17 08:36 Dose: 250 mg Saxagliptin Hydrochloride (Onglyza) 5 mg PO DAILY [facility] Last Admin: 10/09/16 08:38 Dose: 5 mg Senna/Docusate Sodium (Senna Plus) 1 tab PO BID PRN PRN Reason: Constipation Sodium Chloride (Saline Flush) 10 ml FLUSH ASDIRECTED PRN PRN Reason: Keep Vein Open Last Admin: 10/04/16 12:41 Dose: 10 ml Temazepam (Restoril) 7.5 mg PO BEDTIME PRN PRN Reason: Sleep Tiotropium Lovejoy (Spiriva Handihaler) 18 mcg INH DAILY [facility] Last Admin: 10/09/16 08:18 Dose: 1 puff Tizanidine HCl (Zanaflex) 2 mg PO Q6H PRN PRN Reason: Muscle Spasm Discontinued Medications Acetaminophen (Tylenol) 650 mg PO NOW ONE Stop: 10/04/16 13:32 Last Admin: 10/04/16 14:32 Dose: 650 mg Diazepam (Valium) 2 mg IVPUSH ONETIME ONE Stop: 10/04/16 12:16 Last Admin: 10/04/16 12:41 Dose: 2 mg Diazepam (Valium) 2 mg IVPUSH ONETIME ONE Stop: 10/04/16 13:32 Last Admin: 10/04/16 14:28 Dose: 2 mg Diphtheria/Tetanus/Acell Pertussis (Adacel) 0.5 ml IM .ONCE ONE Stop: 10/06/16 18:26 Diphtheria/Tetanus/Acell Pertussis (Adacel) 0.5 ml IM .ONCE ONE Stop: 10/09/16 11:31 Last Admin: 10/09/16 10:57 Dose: 0.5 ml Hydromorphone HCl (Dilaudid) 0.25 mg IVPUSH ONETIME ONE Stop: 10/04/16 15:19 Last Admin: 10/04/16 15:39 Dose: 0.25 mg Sodium Chloride (Normal Saline) 1,000 mls @ 100 mls/hr IV ONETIME ONE Stop: 10/04/16 23:14 Last Admin: 10/04/16 14:25 Dose: 100 mls/hr Ceftriaxone Sodium 1 gm/ (Sodium Chloride) 100 mls @ 200 mls/hr IV ONETIME ONE Stop: 10/04/16 16:03 Last Admin: 10/04/16 15:59 Dose: 200 mls/hr Ceftriaxone Sodium 1 gm/ (Sodium Chloride) 100 mls @ 200 mls/hr IV Q24H [facility] Last Admin: 10/08/16 09:23 Dose: 200 mls/hr Sodium Chloride (Normal Saline) Confirm Administered Dose 100 mls @ as directed .ROUTE .STK-MED ONE Stop: 10/06/16 09:05 Last Admin: 10/06/16 09:12 Dose: 1 ml Magnesium Sulfate 2 gm/ Premix 50 mls @ 25 mls/hr IV ONETIME ONE Stop: 10/07/16 15:29 Last Admin: 10/07/16 15:36 Dose: 25 mls/hr Ceftriaxone Sodium 2 gm/ (Sodium Chloride) 100 mls @ 200 mls/hr IV Q24H [facility] Ceftriaxone Sodium 1 gm/ (Sodium Chloride) 100 mls @ 200 mls/hr IV ONETIME ONE Stop: 10/08/16 11:14 Last Admin: 10/08/16 10:53 Dose: 200 mls/hr Ceftriaxone Sodium 2 gm/ (Sodium Chloride) 100 mls @ 200 mls/hr IV Q24H [facility] Magnesium Oxide (Magnesium Oxide) 400 mg PO ONETIME ONE Stop: 10/05/16 08:31 Last Admin: 10/05/16 08:22 Dose: 400 mg Magnesium Sulfate (Pharmacy To Dose - Magnesium Replacement) 1 dose .XX ASDIRECTED [facility] Non-Formulary Medication (Lactobacillus Acidophilus [Acidophilus]) 1 tab PO DAILY [facility] Oxycodone HCl (Oxycontin) 10 mg PO Q12HR [facility] Oxycodone HCl (Oxycontin) 5 mg PO Q12HR [facility] Oxycodone HCl (Oxycodone) 5 mg PO Q12HR [facility] Last Admin: 10/07/16 08:15 Dose: 5 mg Potassium Chloride (Klor-Con M20) 20 meq PO ONETIME ONE Stop: 10/04/16 15:32 Last Admin: 10/04/16 15:41 Dose: 20 meq Potassium Chloride (Pharmacy To Dose - Potassium Replacement) 1 dose .XX ASDIRECTED [facility] Potassium Chloride (Klor-Con M20) 40 meq PO Q4H [facility] Stop: 10/05/16 16:16 Last Admin: 10/05/16 18:05 Dose: 40 meq Potassium Chloride (Potassium Chloride Solution) 40 meq PO ONETIME ONE Stop: 10/08/16 09:48 Last Admin: 10/08/16 10:50 Dose: 40 meq Potassium Chloride (Klor-Con M20) 40 meq PO ONETIME ONE Stop: 10/09/16 09:11 Last Admin: 10/09/16 10:08 Dose: 40 meq Potassium Chloride (Klor-Con M20) 20 meq PO ONETIME ONE Stop: 10/09/16 09:11 Last Admin: 10/09/16 10:07 Dose: 20 meq *Q Meaningful Use (DIS) - VTE *Q VTE Criteria *Q: - Stroke *Q Stroke Criteria *Q: - AMI *Q AMI Criteria *Q:
[2016-10-09] MEDS ORDERED: Potassium Chloride 20 MEQ Tab.ER PO ONE ×2 (09:10)
[2016-10-09] MEDS ORDERED: cefTRIAXone 2 GM in Sodium Chloride 0.9% 100 ML IV SCH ×3 (10:00)
[2016-10-09] MEDS ORDERED: Diphtheria,Pertussis(Acell),Tetanus Vaccine 0.5 ML SDV IM ONE (11:30)
== END 2016-10-09 13:09 | DRG 690 ==
LOC: JD.ED 11:22 → JD.MS 16:39
PROVIDERS: ADMIT Internal Medicine; ATTEND Internal Medicine
DX: N39.0 Urinary tract infection, site not specified (principal); I13.0 Hypertensive heart and chronic kidney disease with heart failure and stage 1 through stage 4 chronic kidney disease, or unspecified chronic kidney disease; N30.00 Acute cystitis without hematuria; I50.30 Unspecified diastolic (congestive) heart failure; L12.0 Bullous pemphigoid; M19.90 Unspecified osteoarthritis, unspecified site; I48.91 Unspecified atrial fibrillation; I10 Essential (primary) hypertension; E11.9 Type 2 diabetes mellitus without complications; G89.11 Acute pain due to trauma; M54.5 Low back pain; G89.29 Other chronic pain; W19.XXXA Unspecified fall, initial encounter; E11.65 Type 2 diabetes mellitus with hyperglycemia; Z79.4 Long term (current) use of insulin; D72.829 Elevated white blood cell count, unspecified; E87.6 Hypokalemia; R53.1 Weakness; I48.2 Chronic atrial fibrillation; Z79.01 Long term (current) use of anticoagulants; Z79.52 Long term (current) use of systemic steroids; Z79.899 Other long term (current) drug therapy; N18.9 Chronic kidney disease, unspecified; M85.80 Other specified disorders of bone density and structure, unspecified site; Z88.8 Allergy status to other drugs, medicaments and biological substances; Z66 Do not resuscitate; Y92.099 Unspecified place in other non-institutional residence as the place of occurrence of the external cause; R06.02 Shortness of breath
CPT/HCPCS: 71010; 73564; 72100; 72070; 73502; 70450; 73700; 72131; 96361; 96365; 99285; 96376; 96375; 85025; 85610; 81001; 36415; 82962; 80053; 83735; 84484; 83880; 86140; 84443; 84439; 83036; 87086; 87186; 87088; 82306; A9270 ×2; J3360 ×2; J7040; J7030; J7050; J0696; J1170; P9612; 72125; 72125-26; 73070-26-RT; 73070-RT; 73562-26-LT; 73562-LT; 80048; 87641; 90715; 94640; 94664; 94760; 97110-GO; 97110-GP; 97116-GP; 97162-GP; 97166-GO; 97530-GO; 99222; 99231; 99232; 99239; J1815-GY; J3475